=== PATIENT | female | born 1980 | race Caucasian/White ===

== ENCOUNTER 2016-06-20 12:48 | Inpatient (IN) | payer OTHER ==
--- NOTE | ~2016-06-20 | CN ---
Consultation Report [facility] [address] [place]. [address] NAME: TOM GUERRIER : 78 STATUS : ADM IN PAT#: [id number] AGE: 36 ADM/REG DATE : 06/20/16 MR#: [id number] REPORT SERV DATE: 06/21/16 DICTATED BY: DATE: REPORT STATUS : Draft TRANSCRIBED BY: MODL DATE: 06/21/16 NEUROLOGY CONSULTATION. DATE OF CONSULTATION: 06/21/2016 REASON FOR CONSULTATION: Seizure and myoclonus activities. HISTORY OF PRESENT ILLNESS: This is a 36-year-old female with past medical history of bipolar disease previously well controlled, functional, working, obtaining a degree. The patient was noted to have some difficulties with bipolar medication. As a result, the patient's physician was trying to change the bipolar medication regimen. The patient's physician told her to stop the bipolar medication and it is unclear whether or not the patient also stopped all of her other home medications. As a result, the patient was found by family member to be shaking and seizing nonstop. As a result, the patient was taken to hospital initially at [facility] where the patient was admitted on 06/19/2016. Neurologist, Dr. Carlson was evaluating the patient, EEG was obtained. The patient was started on Depacon 750 mg IV b.i.d. secondary to the patient on the ground for prolonged period of time. The patient developed rhabdomyolysis and the patient was transferred to [facility] for CRRT. The patient was seen in intensive care unit at the [facility]. Upon arrival, the patient was noted to be very agitated, had four-point restraints, required Ativan. The patient was placed on propofol and subsequently intubated overnight. The patient is currently off sedation but remains intubated, and since off sedation, the patient was noted to have a mostly reactive myoclonus type of activity. The patient was noted to have generalized shaking episodes and jerking episode, predominantly on the left side, especially worse with stimulation prior to the hospitalization. No clear fever episode was otherwise noted. The patient was supposed to be on scheduled benzodiazepine, however, admission UDS was only noted to have cannabinoids. It is questionable whether or not the patient was taking benzodiazepine at home prior to the hospitalization. PAST MEDICAL HISTORY: Otherwise significant for bipolar disease and ADD. HOME MEDICATION: Unclear at this time. ALLERGIES: THE PATIENT REPORTS NO KNOWN DRUG ALLERGIES. SOCIAL HISTORY: The patient lives alone. Has positive cannabinoids on UDS, but otherwise does not use any tobacco products. No history of alcohol usage per medical record. FAMILY HISTORY: Significant for depression. REVIEW OF SYSTEMS: Unfortunately unable to be obtained secondary to the patient's current mental status. Consultation Report [address] [place]. [address] NAME: TOM GUERRIER : 78 STATUS : ADM IN PAT#: [id number] AGE: 36 ADM/REG DATE : 06/20/16 MR#: [id number] REPORT SERV DATE: 06/21/16 DICTATED BY: DATE: REPORT STATUS : Draft TRANSCRIBED BY: MODSaundra DATE: 06/21/16 PHYSICAL EXAMINATION: VITAL SIGNS: The patient previously, since the hospitalization, was noted to be afebrile. Overnight, the patient's vital sign was noted to be T-max of 99.2, heart rate of 70 to 101, respiration of 13 to 21, and blood pressure of 102 to 152 over 60 to 90. GENERAL: The patient is well developed, well nourished, in no acute distress. CARDIOVASCULAR: Tachycardic. No carotid bruits were otherwise auscultated. PULMONARY: Clear to auscultation bilaterally. NEUROLOGICAL: Generally, the patient is intubated, nonverbal, not following commands. The patient will open eye with stimulation as well as name calling. Cranial nerves 2 through 12, pupils equal, round, and reactive to light. Horizontal eye movement was noted on oculocephalic maneuver. No fujah-ye-oyvpal response was noted. Corneal reflex was noted to be intact. The patient noted to have minimal grimace to bilateral jaw. The patient does have a delayed gag reflex at the time of evaluation, now clear. The patient demonstrates some spontaneous movement of the bilateral upper extremity, almost like flexor posturing type of response with the patient noted to have myoclonus jerking, worse with stimulation. The patient in addition was noted to have myoclonus jerk with noxious stimulation in bilateral upper extremities. Bilateral lower extremities; the patient was noted to have sustained clonus in the left lower extremity, no clonus was noted in the right lower extremity. Otherwise, the patient was noted to have 2+ reflex in bilateral upper and right lower extremity. 4+ reflex in the left lower extremity. Upgoing toe in the left lower extremity. Downgoing toe in the right plantar reflex. Coordination and gait were unable to be evaluated secondary to patient's current mental status. LABORATORY STUDIES: Demonstrated white blood cell count of 13.8, hemoglobin of 11.0, hematocrit of 32.3, platelet count of 160. Chemistry panel; sodium 140, potassium 4.2, chloride 105, bicarb is 23, BUN of 16, creatinine of 2.38, glucose of 73, calcium of 8.9, magnesium of 2.1. CPK is 25,296, which was improved upon outpatient CPK. Blood gas demonstrated pH of 7.31, pCO2 of 45, pO2 of 75, bicarb of 22.0, O2 saturation of 94.2. At the time of evaluation, CT scan of the brain obtained on 06/18/2016, demonstrated no acute process. No other neuro imaging was available. IMPRESSION AND PLAN: 1. Encephalopathy. 2. Seizure. 3. Myoclonus, mostly reactive. The patient was noted to be in status epilepticus prior to hospitalization. Question of acute benzo withdrawal. We will obtain EEG study. We will increase Depakote to 1000 mg IV b.i.d. For now, we will also check serum ammonia level. We will have patient on Keppra 500 mg IV b.i.d. secondary to the patient's asymmetrical physical examination, especially with clonus, as well as hyperreflexia in the left lower extremity. The patient's condition was stabilized when the patient is off CRRT. We will evaluate the patient for possible MRI study. When the patient was extubated, we will also evaluate for psychiatric consultation to manage patient's psychiatric medication. RECOMMENDATION: Consultation Report [facility] [address] [place] [address] NAME: TOM GUERRIER : 78 STATUS : ADM IN [facility]#: [id number] AGE: 36 ADM/REG DATE : 06/20/16 MR#: [id number] REPORT SERV DATE: 06/21/16 DICTATED BY: DATE: REPORT STATUS : Draft TRANSCRIBED BY: MODL DATE: 06/21/16 1. Ammonia level. 2. Ammonia and CPK level with morning labs. 3. Increase Depakote to 1000 mg IV b.i.d. 4. Keppra 500 mg IV b.i.d. 5. EEG. 6. When the patient is off CRRT with stable clinical evaluation, we will evaluate patient for MRI of the brain without contrast. 7. When the patient is extubated and able to communicate, we will obtain Psychiatry consult for management of bipolar disease and psychiatric medication. CCH/MODL Robbin Mondragon MD / [id number] CC: Raji Carter MD
--- NOTE | ~2016-06-20 | DS ---
Discharge Summary [facility] [address] [place]. [address] NAME: TOM RIVAS : 78 STATUS : DIS IN PAT#: [id number] AGE: 36 ADM/REG DATE : 06/20/16 MR#: [id number] REPORT SERV DATE: 07/19/16 DICTATED BY: DATE: REPORT STATUS : Draft TRANSCRIBED BY: MODL DATE: 07/18/16 ADMISSION DATE: 06/20/2016 DISCHARGE DATE: 07/18/2016 DISCHARGE DIAGNOSES: 1. End-stage renal disease secondary to rhabdomyolysis. 2. Dysphonia. 3. Seizure disorder. 4. Status epilepticus. 5. Depression and anxiety. 6. Bipolar disorder. 7. Hypertension. 8. Anemia. 9. Hypoxia. CONSULTANTS: Nephrology consult, Dr. Audie Brewster and Rafy Bell. Neurology consult, Dr. Arturo Carlson. Pulmonary Critical Care, Dr. Johnson. ENT consult, Dr. Darrin Andrade. Psychiatry, Dr. Sree Cardoza. HOSPITAL COURSE: Please see initial H and P by Dr. Lucian Grossman, H and P by Dr. Martha Sanchez, interim discharge summary by Dr. Eri Wetzel on 06/30/2016, Dr. Nathan Ferrell on 07/02/2016, Dr. Zack Martin on 07/15/2016, and I have assumed the patient's care on 07/16/2016 through 07/18/2016. HISTORY OF PRESENT ILLNESS: Ms Rivas is a 36-year-old female with underlying bipolar disease, ADHD, depression who was in the process of having psychiatric medications adjusted by her outpatient psychiatrist and was found down on the floor at home. The patient had apparently had a seizure at that time. It was thought that the patient had vomited and probably aspirated. The patient had injury typical of a seizure as well as encephalopathy and delirium and rhabdomyolysis. Kidney function continued to deteriorate until the patient is requiring dialysis. Her initial CK went up to 59,000, but last was down to 73. The patient has had a PermCath placed on her right side, and the patient was given CRRT until dismissed out on the floor where she is on dialysis every other day. Today, 07/18/2016, the patient had an additional PermCath placed on her left chest and the right chest PermCath was still left in place despite the exposed cuff. This was discussed with Dr. Bell and it will be addressed at dialysis. During the patient's time with me, the patient has been alternately tearful at realization that she will have to be on dialysis but is relieved that she probably will not have to have it on a long-term basis due to her discussions with Dr. Bell. The patient will be having outpatient dialysis starting tomorrow. At this time, the patient has two PermCaths that are covered with sterile dressings. An O2 stat evaluation was done after determining patient was desaturating while she was having conversation. On room air, her O2 saturation went down to 81%, so home O2 has been ordered. The patient is ambulatory with a rolling walker and is starting to void in small amounts. The patient and mother have been educated as to a renal diet with a 1500 mL fluid restriction and they verbalized understanding. The patient's BNP continues to be elevated at 4194. Discharge Summary [address] [address] NAME: TOM RIVAS : 78 STATUS : DIS IN PAT#: [id number] AGE: 36 ADM/REG DATE : 06/20/16 MR#: [id number] REPORT SERV DATE: 07/19/16 DICTATED BY: DATE: REPORT STATUS : Draft TRANSCRIBED BY: DUNG DATE: 07/18/16 LABORATORY DATA: Her current labs are sodium 134, potassium 4.2, chloride 98, bicarb 22.6, BUN is 20, creatinine is 4.20, GFR is 15, glucose 85, calcium 8.2, and magnesium 1.6 of which 1 g of IV magnesium has been given in addition due to the lab. Phosphorus 3.3. WBC 6.8, hemoglobin 9.7, hematocrit 28.4, platelets 81. The patient has received 3 units of packed cells during her stay. Medications have been discussed with the patient regarding her home medications that she was taking for her psychiatric needs and it was recommended the [facility] needs since the patient will be going home on Depakote which is also given for bipolar disorder as well as seizure disorder. The patient's home Lamictal has been cut down to 25 mg twice daily and it was reviewed with mother how to divide the tablets that she has at home. The patient was instructed not to use any NSAIDs or Pepcid while she was at home. The patient has been evaluated by Speech Therapy with a modified barium swallow, is allowed to have a chopped meats with gravy. The patient also continues to experience dysphonia due to prolonged intubation, but is tolerating p.o. intake well. Last transfusion of 2 units of PRBCs was done on 07/15/2016. PHYSICAL EXAMINATION: VITAL SIGNS: Blood pressure 133/85, temp 97.3, heart rate 88, respirations 18, O2 saturation 97% on 2 L nasal cannula. HEENT: Head is normocephalic. Pupils equal, round, and reactive to light. Sclerae are clear and nonicteric. The patient has good dentition. NECK: No palpable lymphadenopathy or thyromegaly. Neck is supple. Neck veins are flat. CARDIAC: S1 and S2 with no obvious murmurs, rubs, or gallops. LUNGS: Clear with normal respiratory effort. GI: Abdomen is soft, and nontender with active bowel sounds in all four quadrants. Normal bowel habitus. No palpable organomegaly. EXTREMITIES: No significant edema, clubbing, or cyanosis. Pulses are present equal bilaterally. MUSCULOSKELETAL: The patient moves all extremities x4. Ambulates with rolling walker. SKIN: Skin is warm and dry with normal color and turgor. Is also intact. NEURO/PSYCH: The patient is alert and oriented x3. Pleasant and cooperative. The patient has occasional bursts of tearfulness realizing seriousness of medical condition. The patient is eating well and will be discharged to home on a renal diet with 1500 mL fluid restriction. DISCHARGE MEDICATIONS: Amlodipine 10 mg p.o. daily, Depakote 1000 mg p.o. every 12 hours, Lexapro 10 mg daily, labetalol 300 mg twice daily, Lamictal 25 mg twice daily, melatonin 3 mg daily, saline spray four times a day as needed in each nostril, clonazepam 2 mg at bedtime, loratadine as needed for allergies 10 mg. The patient has also been instructed to use omeprazole or pantoprazole or Tums if she is having indigestion. The patient has also been instructed not to use any NSAID type products or Pepcid, famotidine. The patient is only to use Tylenol for pain. The patient is to follow up with PCP in one week and to follow up with [facility], within one week. Should the patient develop any more episodes of severe illness, Discharge Summary [facility] [address] [place] [address] NAME: TOM RIVAS : 78 STATUS : DIS IN PAT#: [id number] AGE: 36 ADM/REG DATE : 06/20/16 MR#: [id number] REPORT SERV DATE: 07/19/16 DICTATED BY: DATE: REPORT STATUS : Draft TRANSCRIBED BY: MODL DATE: 07/18/16 she is to call her PCP or present to the ER. Approximately 60 minutes has been spent coordinating discharge care of this patient including [id number] encounter and summarization of the discharge. EDITH/DUNG Nini Ramos NP / [id number] CC: Yves Don MD
--- NOTE | ~2016-06-20 | IDS ---
Interim Discharge Summary [facility] [address] [place]. [address] NAME: TOM GUERRIER : 78 STATUS : ADM IN PAT#: [id number] AGE: 36 ADM/REG DATE : 06/20/16 MR#: [id number] REPORT SERV DATE: 07/15/16 DICTATED BY: MENDEL HUDSON DATE: 07/15/16 REPORT STATUS : Draft TRANSCRIBED BY: MODL DATE: 07/15/16 ADMISSION DATE: 06/20/2016 DISCHARGE DATE: Intermittent dates cover July 09, 2016 to July 15, 2016. Current consultants include Nephrology. CURRENT HOSPITAL DIAGNOSES: 1. End-stage renal disease due to rhabdomyolysis. 2. History of seizure, admitted after found down and status epilepticus. 3. Depression. 4. Anxiety. 5. Dysphonia with silent aspiration. 6. Anemia. HOSPITAL COURSE DURING THE PAST WEEK: 1. The patient has continued dialysis. Her hyponatremia and volume status improved depending on where she is at her dialysis. 2. In regard to her dysphonia with silent aspiration, she will have a modified barium swallow today to see if that has improved. ENT did order a CT of the neck which was unremarkable. They did notice a left vocal fold paralysis during flexible laryngoscopy. This can be followed up as an outpatient. 3. In regard to her anemia, she did receive 2 units of blood today. She is continued on current medications per Psychiatry who have since signed off. DISPOSITION: Still pending outpatient dialysis placement. MARIELLAK/DUNG Mendel Hudson MD / [id number] CC: Mendel Hudson MD
--- NOTE | ~2016-06-20 | OP ---
Record Of Operation [facility] [address] [place]. [address] NAME: TOM GUERRIER : 78 STATUS : ADM IN PAT#: [id number] AGE: 36 ADM/REG DATE : 06/20/16 MR#: [id number] REPORT SERV DATE: 06/20/16 DICTATED BY: MARTHA SANCHEZ DATE: 06/20/16 REPORT STATUS : Draft TRANSCRIBED BY: MODL DATE: 06/20/16 DATE OF PROCEDURE: 06/20/2016 PROCEDURE: Vas-Cath placement for hemodialysis. INDICATION FOR PROCEDURE: Rhabdomyolysis. PROCEDURE NOTE: The patient's left groin was prepped and draped in sterile fashion, using ultrasound guidance, we were able to locate the left femoral vein and inserted the guidewire. We were able to use the ultrasound to ensure that this was in the femoral vein prior to the dilation. We were able to insert the Vas-Cath and had return of venous blood. This was secured and capped with heparin. This was draped in standard fashion. OUTCOME: Successful left groin vascular access was conducted for hemodialysis. HFQ/DUNG Martha Sanchez MD / [id number] CC: Raji Carter MD UNKNOWN
--- NOTE | ~2016-06-20 | CN ---
Consultation Report [facility] [address] [place]. [address] NAME: TOM GUERRIER : 78 STATUS : ADM IN PAT#: [id number] AGE: 36 ADM/REG DATE : 06/20/16 MR#: [id number] REPORT SERV DATE: 07/01/16 DICTATED BY: SREE VILLALBA DATE: 07/01/16 REPORT STATUS : Draft TRANSCRIBED BY: MODL DATE: 07/01/16 PSYCHIATRIC CONSULTATION DATE OF CONSULTATION: 07/01/2016 I reviewed this patient's medical record. I discussed the patient's history with her mother. HISTORY OF PRESENT ILLNESS: She was admitted with encephalopathy, rhabdomyolysis, acute kidney injury, and questionable status epilepticus. PAST PSYCHIATRIC HISTORY: When she was in the 6th grade, she developed panic attacks when she had to change classrooms. Subsequently, she showed spontaneous improvement when she was in her mid teens, she overdosed in the context of relationship issues with a boyfriend. She saw a counselor at that time. Over the years, she has worked and she went to college. A few years ago, she got a bachelor's degree from [employer]. She was working at [employer] throughout this time. She continued to take college courses and she was expecting to finish her master's degree in international business in September of this year. She has had a problem with depression and rapid mood shifting for about a year. She has been seeing psychiatrist, Dr. Almendarez, during this time. He had prescribed a variety of psychotropic medications. MEDICATIONS: Her most current home medications list included Concerta 36 mg daily, Adderall XR 30 mg and Adderall IR 10 mg (questionable if she was really taking this medication as it probably was replaced by the Concerta), Wellbutrin XL 300 mg b.i.d., Lexapro 30 mg daily, Lamictal 100 mg b.i.d., and Klonopin 1 mg b.i.d. and 2 mg at bedtime. Information in her record suggested that she may have stopped all of her psychotropic medications for an unspecified period of time prior to this admission. Her mother thought that the patient's mood problems were attributable to an implanted control device. This was removed some time during the past year. SOCIAL HISTORY: She was always a good student, doing well in school. She was also doing well at her job in [employer], until she abruptly decided to quit last month. She got in her mid 20s and she about eight years later. FAMILY HISTORY: A sister and two paternal aunts with bipolar disorder. MENTAL STATUS: She opened her eyes when I greeted her. She made good eye contact. She remained nonverbal. She was calm. DIAGNOSES: 1. Delirium, of unclear etiology. Possible contributors include polypharmacy toxicity or withdrawal, seizures precipitated by Wellbutrin and possibly other psychotropics, serotonin syndrome. 2. Bipolar disorder not otherwise specified. Consultation Report [facility] [id number] [place]. [address] NAME: TOM GUERRIER : 78 STATUS : ADM IN PAT#: [id number] AGE: 36 ADM/REG DATE : 06/20/16 MR#: [id number] REPORT SERV DATE: 07/01/16 DICTATED BY: SREE VILLALBA DATE: 07/01/16 REPORT STATUS : Draft TRANSCRIBED BY: DUNG DATE: 07/01/16 RECOMMENDATIONS: 1. Reduce Lexapro to 10 mg daily. 2. Continue Seroquel. The dose can be based on the level of agitation and her response to the medications. 3. Restart Lamictal at a dose of 25 mg daily. 4. I will follow. KAREEM/DUNG Sree Villalba M.D. / [id number] CC: Raji Carter MD
--- NOTE | ~2016-06-20 | IDS ---
Interim Discharge Summary [facility] [address] [place]. [address] NAME: TOM RIVAS : 78 STATUS : ADM IN PAT#: [id number] AGE: 36 ADM/REG DATE : 06/20/16 MR#: [id number] REPORT SERV DATE: 06/30/16 DICTATED BY: ARGELIA LANE DATE: 06/30/16 REPORT STATUS : Draft TRANSCRIBED BY: MODSaundra DATE: 06/30/16 ADMISSION DATE: 06/20/2016 DISCHARGE DATE: Date of admission: 06/20/2016 (transferred after presenting to [facility] ER on 06/19/2016). HISTORY OF PRESENT ILLNESS: Ms. Rivas is a 36-year-old female with underlying bipolar disease, ADHD and depression who had evidently been in the process of having her psychiatric medications adjusted by her outpatient psychiatrist, Dr. Almendarez and was found down in her home, evidently she had a seizure at that time with injuries consistent with that history. She had vomited and evidently aspirated. She was moved to [facility] Emergency Department, where she was quite agitated and actually required four-point leather restraints in the emergency department. She was ultimately intubated in [facility] ER for respiratory failure and behavioral health concerns/safety of staff. She was found to have fairly profound rhabdomyolysis with a CPK level of around 40,000 and marked acute kidney injury. She was seen by Nephrology and ultimately transferred to our facility for CHEMISTS. Since her transfer here on the , she has remained on mechanical ventilation with minimal urine output. She has been followed by Nephrology and has been transitioned from CHEMISTS to hemodialysis, Friday, Friday, Friday with intermittent diuretic challenges. She is still making minimal urine. She has had a daily spontaneous breathing trial and has consistently failed for rapid shallow breathing, weakness and inability to follow commands. Over the last couple of days, her mental status has improved with administration of Seroquel in addition to her existing Lexapro, which was continued from the outpatient setting as well as Precedex and propofol infusions and intermittent fentanyl for pain control. We have removed quite a bit of volume using dialysis over the last couple of days and are moving in the direction of extubation. ACTIVE PROBLEM LIST: Includes: 1. Acute hypoxemic and hypercapnic respiratory failure, status post intubation at [facility] 2A. This was on a later day 12. Volume removal is on going, and her chest x-ray has cleared dramatically. She also had the aspiration event the day she was found down, and that has improved radiographically. She is on minimal FiO2 at this point. We will try another spontaneous breathing trial this afternoon. She was a bit drowsy and still on a touch of propofol this morning when I rounded. If she fails, we will plan to repeat a spontaneous breathing trial tomorrow morning. Of note, I have introduced a concept of tracheostomy for longer-term mechanical ventilation with her mother who makes her medical decisions, and she is agreeable to proceeding with trach if necessary. 2. Acute kidney injury requiring dialysis. She was started on CHEMISTS on 06/20/2016, and was transitioned to HD mid-week. She is making minimal urine, and her Downing has been removed by Dr. Brunson. She has had a Perma-Cath placed (06/25/2016) in the Interventional Radiology, and the plan is Friday, Friday, Friday dialysis sessions if there is no evidence of improvement. 3. Rhabdomyolysis. Much improved with dialysis. 4. Toxic metabolic encephalopathy. Her mental status is beginning to improve, and her combativeness has improved with upper titration of her twice daily Seroquel dosing. She is already on Lexapro, which was continued during her hospitalization. Precedex Interim Discharge Summary [address] [address] NAME: TOM RIVAS : 78 STATUS : ADM IN [facility]#: [id number] AGE: 36 ADM/REG DATE : 06/20/16 MR#: [id number] REPORT SERV DATE: 06/30/16 DICTATED BY: ARGELIA LANE DATE: 06/30/16 REPORT STATUS : Draft TRANSCRIBED BY: MODSaundra DATE: 06/30/16 has been helpful as well as propofol. She is awake and interactive on max doses of both of those infusions. 5. Seizure disorder. She has been seen by Dr. Mondragon from Neurology, as well as well as Dr. Galo sandy this week. She is currently on valproic acid and Keppra with no further seizure activity. 6. Prophylaxis. She is on subcutaneous heparin and Protonix IV daily for stress ulcer prophylaxis while being mechanically ventilated. Code status is full. Her mother is her primary medical decision maker and has been updated many times throughout the week by myself as well as the nurses. She has fairly a limited understanding of the reality of what has been going on and has poor retention of information, although she is quite pleasant and agreeable. We will continue to educate her and reinforce the concepts related to the patient's care. I did complete FMLA forms for her on 06/29/2016. Please call with questions. AIME/DUNG Argelia Lane MD / [id number] CC: Raji Carter MD
--- NOTE | ~2016-06-20 | HP ---
History And Physical [address] [place]. [address] NAME: TOM RIVAS : 78 STATUS : ADM IN [facility]#: [id number] AGE: 36 ADM/REG DATE : 06/20/16 MR#: [id number] REPORT SERV DATE: 06/20/16 DICTATED BY: RUPERTO SANCHEZ DATE: 06/20/16 REPORT STATUS : Draft TRANSCRIBED BY: MODL DATE: 06/20/16 DATE OF ADMISSION: 06/20/2016 REASON FOR ADMISSION: Rhabdomyolysis, acute hypoxic respiratory failure. CHIEF COMPLAINT: Unable to obtain due to the patient's current status on mechanical ventilation. HISTORY OF PRESENT ILLNESS: Ms Rivas is a 36-year-old female with a past medical history of bipolar disease who apparently has been off her psychiatric medications and was found down at home. She apparently had a seizure at that time, clearly injury noted of a seizure. She also has encephalopathy and delirium. Of further concern, the patient had rhabdomyolysis. The other hospital attempted to treat this with IV fluids. However, CK slowly trended downwards, however, kidney function continued to deteriorate requiring the patient to be on hemodialysis. The patient was brought to the intensive care unit and probably had a vascular access inserted for dialysis. Parents and sisters were at the bedside for further history. PAST MEDICAL HISTORY: Bipolar disease, ADD. HOME MEDICATION: Please see history and physical dated 06/19/2016 at the outside hospital for further detail. ALLERGIES: NO KNOWN DRUG ALLERGIES. SOCIAL HISTORY: The patient currently lives alone. She had positive marijuana drug screen. She does not use any tobacco products. FAMILY HISTORY: Other family members with depression. PHYSICAL EXAMINATION: VITAL SIGNS: Afebrile, heart rate 70s, respiratory rate currently 16, blood pressure 109/70, oxygen saturation 97%. GENERAL: The patient is currently sedated on mechanical ventilation. HEENT: Neck is supple, no JVD. PULMONARY: Lungs are clear to auscultation bilaterally. ABDOMEN: Soft, nontender, nondistended. CARDIAC: Regular rate, no murmurs. SKIN: The patient has multiple areas of bruising and injury from her seizure. LABORATORY EXAMINATION: Kidney function has essentially deteriorated in which the patient is having a quick rise of BUN and creatinine. CK started out at 21,000, went up to 59,000 and is now down to 43. Positive marijuana, but otherwise other findings are not significantly abnormal. ASSESSMENT/PLAN: Ms Rivas is a 36-year-old female with a past medical history noted above, History And Physical [address] [address] NAME: TOM RIVAS : 78 STATUS : ADM IN PAT#: [id number] AGE: 36 ADM/REG DATE : 06/20/16 MR#: [id number] REPORT SERV DATE: 06/20/16 DICTATED BY: RUPERTO SANCHEZ DATE: 06/20/16 REPORT STATUS : Draft TRANSCRIBED BY: MODL DATE: 06/20/16 who presents with respiratory failure, seizure, encephalopathy, kidney failure, with rhabdomyolysis. 1. Acute hypercapnic respiratory failure: Currently, the patient is intubated for airway protection, continue mechanical ventilation. 2. Rhabdomyolysis: The patient had a dialysis catheter placed, we will start CRRT, Nephrology is on board. 3. Acute kidney injury: Currently, Nephrology is on board. 4. Psychiatric medications: At this moment in time, we will hold off on medications as the patient is currently on propofol, however, this will be needed to be addressed. 5. Neurologic: We will have Neurology see the patient for further inquiry. 6. Prophylaxis: We will provide GI and subcu heparin. 7. Code status: The patient is currently full code. HFQ/MODL Ruperto Sanchez MD / [id number] CC: Raji Carter MD
--- NOTE | ~2016-06-20 | EEG ---
Electroencephalogram [facility] [address] [place]. [address] NAME: TOM GUERRIER : 78 STATUS : ADM IN PAT#: [id number] AGE: 36 ADM/REG DATE : 06/20/16 MR#: [id number] REPORT SERV DATE: 06/21/16 DICTATED BY: DATE: REPORT STATUS : Draft TRANSCRIBED BY: MODL DATE: 06/21/16 NEUROLOGY EEG REPORT CLINICAL INDICATION: Myoclonus jerking, encephalopathy. DESCRIPTION: This EEG was performed with 10/20 electrode placement system. During the EEG study, symmetric background activity was noted with generalized slowing, predominant occipital rhythm of roughly 5 to 6 hertz. Photic stimulation was performed, but no driving response was otherwise observed. During the EEG study, one episode of shaking episode with muscle artifact was seen; however, no underlying background activity changes or electrographic seizure was noted. The patient achieved drowsy state during the EEG study. Propofol drip was otherwise turned off immediately prior to the initiation of the EEG study. As stated before, generalized slowing was seen during the EEG evaluation, but no seizure activity was otherwise noted. No electrographic seizure was captured. INTERPRETATION: This EEG study obtained mostly during drowsy state, may be considered abnormal secondary to presence of generalized slowing, mostly in the theta range. Otherwise, no electrographic seizure was seen. Clinical correlation is recommended. [facility]/MODL Robbin Mondragon MD / [id number] CC: Raji Carter MD
--- NOTE | ~2016-06-20 | IDS ---
Interim Discharge Summary [facility] [address] [place]. [address] NAME: TOM GUERRIER : 78 STATUS : ADM IN [facility]#: [id number] AGE: 36 ADM/REG DATE : 06/20/16 MR#: [id number] REPORT SERV DATE: 07/09/16 DICTATED BY: DATE: REPORT STATUS : Draft TRANSCRIBED BY: MODL DATE: 07/08/16 ADMISSION DATE: 06/20/2016 DISCHARGE DATE: Interim summary dates of service 07/03/2016 to 07/08/2016. The patient is admitted to the [facility]. CONSULTANTS: Included Dr. Bell of Nephrology, Dr. Sree Cardoza of Psychiatry, Dr. Eri Mondragon of Neurology, now signed off. The case was also discussed with the outpatient psychiatrist, Dr. Almendarez. Ears, Nose, and Throat consultation was requested of Dr. Rashid this evening. CURRENT DIAGNOSES: 1. Admitted found down, with status epilepticus. 2. Rhabdomyolysis. 3. Acute kidney injury, presently hemodialysis dependent. 4. Depression. 5. Anxiety. 6. ADD. 7. Dysphagia, past modified barium swallow evaluation on 07/08/2016. 8. Leukocytosis and elevated procalcitonin of unclear significance. 9. Coag negative staph in blood cultures at admission, 1/2 bottles felt to be contaminant. 10.Stable anemia. 11.Toxic/medication-induced encephalopathy, resolved. 12.Hypertension, uncontrolled, with additional labetalol titration underway. 13.Possible perimenopausal state. 14.Hypoxemic respiratory failure, intubated between 06/20/2016 and 06/30/2016. 15.Ongoing dysphonia, suggestive of vocal cord dysfunction. For ENT evaluation. IMAGIN. For full details, please also reference interim discharge summary by Dr. Nathan Trejo on 07/02/2016. Imaging has included EEG on 06/21/2016, showing diffuse slowing without seizure activity. Brain CT without contrast at admission, no acute intracranial abnormality. Abdominal ultrasound on 06/24/2016, showing sludge-filled gallbladder with no current sonographic evidence of cholecystitis. Increased renal cortical echotexture consistent with medical renal disease. Small amount of fluid in the perinephric fat most likely third spacing. 2. MRI brain without contrast on 06/25/2016 shows mastoiditis and sinusitis. No CVA. No evidence of cerebritis or encephalitis. 3. Echocardiogram on 07/07/2016 with normal ejection fraction. 4. Multiple swallow studies between 07/05/2016 and 07/08/2016 demonstrating aspiration. 5. V/Q lung scan on 07/08/2016 indeterminate probability for PE, no large filling defects. BRIEF HISTORY: For full details, please see the previously dictated history of present illness dictated by Dr. Kamala Grossman on 06/19/2016. The patient is a 36-year-old white Interim Discharge Summary [address] [place]. [address] NAME: TOM GUERRIER : 79 STATUS : ADM IN [facility]#: [id number] AGE: 36 ADM/REG DATE : 06/20/16 MR#: [id number] REPORT SERV DATE: 07/09/16 DICTATED BY: DATE: REPORT STATUS : Draft TRANSCRIBED BY: MODL DATE: 07/08/16 female, who could not be reached by her mother for few hours, so, she went to her home to find her, found her on the floor in the bathroom with multiple bruises and constant jerking movements. She was unresponsive. She was confused and combative. Her CPK was found to be 20,944. [facility] She had a lumbar puncture, which was felt to be negative for infection. Her creatinine was mildly elevated, in [facility], began to treat with IV fluids and bicarbonate. Her CPK trended downwards, but renal function continued to deteriorate, necessitating the initiation of hemodialysis. The patient was transferred downtown with evidence of acute hypercapnic respiratory failure necessitating intubation and mechanical ventilation as well as anuric renal failure requiring initiation of CRRT. HOSPITAL COURSE: For full details, please also refer to interim discharge summaries by Dr. Mojgan Wetzel on 06/30/[address] Nathan Ferrell on 07/02/2016. The patient was transferred out to the floor on 07/02/2016 and was seeing by me on 07/03/2016 for the initial encounter. That morning, patient was demonstrating confusion, attempted to get out of bed but traumatically dislodged her Downing catheter. It was not replaced after discussion with Nephrology. She remained largely aneuric this week, although her urine output has increased over the weekend. Nephrology continues to follow and is determining the dialysis schedule. The patient received dialysis this morning for some hypoxemia noted over night. Thus far, her renal function does not show spontaneous recovery, although she is producing more urine, and Nephrology is encouraged that she will not be permanently dialysis-dependent after this acute kidney injury. The patient's confusion, toxic metabolic encephalopathy, improved during the course of this week, particularly when Seroquel was tapered off. The patient's mother questions her underlying psychiatric diagnoses and whether she does in fact have bipolar disorder. Psychiatry has been following here, and I discussed with the patient's outpatient psychiatrist, Dr. Almendarez. The patient has formal diagnoses of depression, anxiety, and ADD. Her current medication regimen is similar to what it was outpatient, although there is question of whether the patient was actually taking those medications or whether abrupt medication withdrawal may have factored into her presentation. Her medication regimen is stable at present, and antipsychotic medications are being avoided at mother's request. Currently, the patient is alert and oriented in three dimensions, cooperative, pleasant, and not demonstrating any active mood disorder. Blood pressure control has been an issue this week. The patient was placed on Norvasc, but blood pressure remained elevated. She had concomitant tachycardia so, was placed on metoprolol. This was increased, but blood pressure typically remained in the systolic 180 to 200 range. Metoprolol was changed to labetalol for improved blood pressure control, and this is been up titrated in the past few days. Current dose of labetalol is being increased to 300 mg p.o. twice a day. The patient also has several other p.r.n. agents for blood pressure control. Another active issue this week was dysphagia. The patient finally has passed a modified barium swallow study today. Her NG tube and tube feeds have been discontinued, and she has been started on a mechanical soft diet with honey-thick liquids. She has some residual Interim Discharge Summary [address] [place]. [address] NAME: TOM GUERRIER : 78 STATUS : ADM IN PAT#: [id number] AGE: 36 ADM/REG DATE : 06/20/16 MR#: [id number] REPORT SERV DATE: 07/09/16 DICTATED BY: DATE: REPORT STATUS : Draft TRANSCRIBED BY: MODSaundra DATE: 07/08/16 dysphonia, particularly with whispering, indicative of possible vocal cord dysfunction. An Ear, Nose, and Throat consultation is requested for tomorrow. The patient has some leukocytosis and has throughout this admission, but multiple workups for infectious causes have been negative. She was on Zosyn for a portion of the hospitalization, and this was discontinued when she transferred out of the intensive care unit. Her white blood cell count has gone up since then, but her procalcitonin has trended downwards and she is not manifesting any signs of fever. Repeat values are pending for the morning. Regarding tachycardia, it is sinus in nature, somewhat responsive to beta blockade. The cause of tachycardia is unclear as she has tended to be more volume overloaded and volume deplete with concomitant renal failure, and does not appear particularly anxious lately, and does not show any signs of sepsis. She was sent for a V/Q scan, as Nephrology wished to avoid any nephrotoxins contrast dye. This was read as indeterminate probability of pulmonary embolism, but no large perfusion defects to suggest pulmonary embolism. There has not felt to be a current indication for heparin drip, and she has been on DVT prophylaxis throughout the hospitalization. The patient's mother noted that she has occasional hot flashes and was concerned for possible early ovarian failure. She requested the LH, FSH, and other labs for premature ovarian failure be obtained, these have been. One is a send out. When results are available, the patient's mother would like to send them to Dr. Porras, for further decision making regarding HRT. MAXINE/DUNG Froy House M.D. / [id number] CC: Paul Cooley M.D.
--- NOTE | ~2016-06-20 | CN ---
Consultation Report [address] [facility] [place]. [address] NAME: TOM GUERRIER : 78 STATUS : ADM IN [facility]#: [id number] AGE: 36 ADM/REG DATE : 06/20/16 MR#: [id number] REPORT SERV DATE: 07/09/16 DICTATED BY: BETHANY LOGAN DATE: 07/09/16 REPORT STATUS : Draft TRANSCRIBED BY: MODL DATE: 07/09/16 CONSULTATION DATE OF CONSULTATION: CHIEF COMPLAINT: Hoarseness, dysphagia. HISTORY OF PRESENT ILLNESS: 36-year-old female with underlying bipolar disease, ADHD, and depression, who was recently admitted to [facility] for acute hypoxemic and hypercapnic respiratory failure, requiring intubation as well as acute kidney injury, requiring dialysis, rhabdomyolysis, toxic metabolic encephalopathy, seizure disorder. She was extubated on 06/30/2016 and had hoarseness and dysphagia following this. She initially failed her first modified barium swallow study on 07/08/2016 (yesterday). She had a repeat modified barium swallow showing aspiration precautions and a limited diet. Recommendation was for ENT consultation due to hoarseness. PAST MEDICAL HISTORY: As mentioned in the history of present illness. PAST SURGICAL HISTORY: As mentioned in the history of present illness. MEDICATIONS: See the MAR. ALLERGIES: NONE. SOCIAL HISTORY: She is at [employer], , and . REVIEW OF SYSTEMS: She is short of breath on 100% non-rebreather. She is deferring endoscopic examination. She is somewhat communicative, but appears tired and somewhat restless. PHYSICAL EXAMINATION: HEENT: Her ears are normal. Her nose has nasal cannula oxygen. Her oral cavity and oropharynx are not directly visualized. She is wearing a non-rebreather oxygen mask. Her neck has a right Vas-Cath in surgical site. No adenopathy. Full range of motion. NEURO: Cranial nerves 2 through 12 appear intact. Her voice evaluation reveals hoarseness and a weak cough. Flexible fiberoptic laryngoscopy was attempted, but she deferred based on her weakness and her desaturation off the 100% non-rebreather. IMPRESSION: Hoarseness and dysphagia, post extubation. PLAN: Plan is for flexible fiberoptic laryngoscopy when the patient is more fit physically to tolerate this. She is deferring now based on her current respiratory status. She may Consultation Report [id number] [facility] [place] [address] [address] NAME: TOM GUERRIER : 78 STATUS : ADM IN PAT#: [id number] AGE: 36 ADM/REG DATE : 06/20/16 MR#: [id number] REPORT SERV DATE: 07/09/16 DICTATED BY: BETHANY LOGAN DATE: 07/09/16 REPORT STATUS : Draft TRANSCRIBED BY: DUNG DATE: 07/09/16 have a vocal fold paralysis, which would need to be documented. Her voice and cough sound weak at this point, but her swallowing study does show improvement over the last several studies. She has limited dietary intake as recommended by Speech Therapy and would defer further oral intake to their recommendations. We will plan to follow up for flexible fiberoptic laryngoscopy. COLLEEN/DUNG Bethany Logan M.D. / [id number] CC: Froy House M.D.
--- NOTE | ~2016-06-20 | DS ---
Discharge Summary [id number] [place]. [address] NAME: TOM GUERRIER : 78 STATUS : DIS IN PAT#: [id number] AGE: 36 ADM/REG DATE : 06/20/16 MR#: [id number] REPORT SERV DATE: 07/19/16 DICTATED BY: DATE: REPORT STATUS : Draft TRANSCRIBED BY: MODL DATE: 07/18/16 ADMISSION DATE: 06/20/2016 DISCHARGE DATE: 07/18/2016 DISCHARGE DIAGNOSES: 1. End-stage renal disease, secondary to rhabdomyolysis. 2. Status epilepticus. 3. Dysphonia. 4. Seizure disorder. 5. Depression with anxiety. 6. Hypertension. 7. Anemia. 8. Hypoxia. CONSULTATIONS: 1. Nephrology, Dr. Bell. 2. Neurology, Dr. Carlson. 3. Pulmonary Critical Care, Dr. Johnson. 4. ENT, Dr. Darrin Andrade. 5. Psychiatry, Dr. Sree Cardoza. DICTATION ENDS HERE EDITH/DUNG Nini Ramos NP / [id number] CC: Yves Don MD
--- NOTE | ~2016-06-20 | OP ---
Record Of Operation [facility] [address] [place]. [address] NAME: TOM GUERRIER : 78 STATUS : ADM IN [facility]#: [id number] AGE: 36 ADM/REG DATE : 06/20/16 MR#: [id number] REPORT SERV DATE: 06/21/16 DICTATED BY: MILEY PIZANO DATE: 06/20/16 REPORT STATUS : Draft TRANSCRIBED BY: DUNG DATE: 06/20/16 DATE OF PROCEDURE: 06/20/2016 TIME: 2030 hours. PROCEDURE: Right venous subclavian line. INDICATION: For access. DESCRIPTION OF PROCEDURE: An informed consent obtained from patient's family regarding the risks and benefits of the procedure. A time-out done. Trendelenburg position. Ultrasound guide. ChloraPrep scrub. Xylocaine 1% used for anesthesia. The right subclavian vein was entered with seeker needle, catheter placed over the guidewire via modified Seldinger technique [address]. Sterile technique used throughout. The bedside saline injection and echo confirmed position. MARITZA/DUNG Miley Pizano M.D. / [id number]
--- NOTE | ~2016-06-20 | IDS ---
Interim Discharge Summary [facility] [address] [place]. [address] NAME: TOM GUERRIER : 78 STATUS : ADM IN PAT#: [id number] AGE: 36 ADM/REG DATE : 06/20/16 MR#: [id number] REPORT SERV DATE: 07/02/16 DICTATED BY: CAROL FERRELL IV DATE: 07/02/16 REPORT STATUS : Draft TRANSCRIBED BY: DUNG DATE: 07/02/16 ADMISSION DATE: 06/20/2016 DISCHARGE DATE: Date of transfer from [facility] is 06/20/2016, date of transfer to the floor is 07/02/2016. ADMITTING DIAGNOSES: 1. Respiratory failure with extubation on 06/30/2016. 2. Rhabdomyolysis. 3. Acute kidney injury, who remains on dialysis. 4. Metabolic encephalopathy, improved. 5. ADD bipolar disorder with adjustments of her medications. 6. Seizure abnormality with no current seizures on medications. 7. Hypoxemia, improving. 8. Hypertension with adjustments of her medications. 9. High procalcitonin level with only a contaminant positive blood culture, otherwise all cultures are negative. The patient has been treated with 10 days of Zosyn with plan to discontinue after doses today. CONSULTANTS: The patient has continued to have Neurology and Nephrology follow the patient who were consulted initially at [facility]. Speech Therapy, occupational Therapy, and Physical Therapy have all been consulted as well. Dr. Cardoza, Psychiatry. PROCEDURES: The patient had been on STRIP DEBURRER with transition to hemodialysis last week. The patient had an EEG on 06/21/2016 demonstrating diffuse slowing without seizure activity. The patient has central line placed on the 06/21/2016 as well. CURRENT MEDICATIONS: The patient is on DuoNeb with EzPAP q.4 hours while awake and q.4 hours as needed, folic acid 1 mg via OG daily, Habitrol patch 21 mg daily, heparin 5000 units q.8 hours, Keppra 500 mg q.12 hours IV, Depakote 1000 mg b.i.d., Lamictal 25 mg daily, Lexapro 10 mg daily, melatonin 3 mg at bedtime, Norvasc 10 mg daily, Lopressor 12.5 mg twice a day, Protonix 40 mg daily, Seroquel 25 mg in the morning and 50 mg at nighttime, and Zosyn to be completed today 3.375 g q.12 hours. HOSPITAL COURSE: Please see the interim discharge summary dictated by Dr. Wetzel on 06/30/2016 summarizing the care up to that time. The patient was successfully extubated on the 06/30/2016. We have been able to wean her FiO2. She has been intermittently agitated for which she was initially on Precedex. We consulted Dr. Cardoza, who suggested adjustments in her Lexapro and with the re-addition of Lamictal which was performed. The patient has been on Seroquel as well with improvement of her agitation. The patient underwent swallow evaluation on the 07/01/2016 and had a very weak voice for which it was not felt that a formal modified barium swallow study was indicated by speech therapy. Nasogastric tube was placed, and the patient is receiving feeds from that. She is receiving dialysis every Friday, , and Friday and continued to be followed by Nephrology. She has had persistent hypertension for which her Lopressor was added today with continued Norvasc and hydralazine p.r.n. She had cultures, which were negative except for 1 g coag- Interim Discharge Summary [id number] [place]. [address] NAME: TOM GUERRIER : 78 STATUS : ADM IN [facility]#: [id number] AGE: 36 ADM/REG DATE : 06/20/16 MR#: [id number] REPORT SERV DATE: 07/02/16 DICTATED BY: CAROL FERRELL IV DATE: 07/02/16 REPORT STATUS : Draft TRANSCRIBED BY: DUNG DATE: 07/02/16 negative staph from a blood culture and has been on Zosyn empirically with a high procalcitonin level, which has improved; however, antibiotics will be discontinued today with negative cultures in the duration of therapy. The patient had central line that was removed and cultured today. She has a midline on the left arm which will be continued. It was felt that she was stable for transfer to the floor. We will ask the Hospital Service to assume primary responsibilities. BOGDAN/DUNG Carol Ferrell IV, M.D. / [id number] CC: Raji Carter MD
[~2016-06-20 12:48] MED LIST: *UNABLE3; ADDERALL; ADZENYS; CHLORPHENIRAMINE; CONCERTA; EXCEDRIN MIGRAINE; GUAIFENESIN; HYDROCORTISONE; KLONOPIN; LAMICTAL; LEXAPRO; LORATADINE; MIDOL; PEPCID; PHENYLEPHRINE; TACROLIMUS; TYLENOL; VIMOVO; WELLBUTRIN XL
[2016-06-20 15:41] LABS: BE (BASE EXCESS) 7.3 MEQ/L (0 +/- 2.5); HCO3 (ACTUAL BICARBONATE) 30.4 MEQ/L (23-27); INSTRUMENT SERIAL # 35151; PCO2 (CO2 TENSION) 37 MMHG (35-45); PO2 (O2 TENSION) 103 MMHG (79-93); pH 7.53 (7.37-7.43)
[2016-06-20 15:42] LABS: ALLENS TEST Pos; CARBOXYHEMOGLOBIN 0.2 % (0-3); HEMOBLOGIN CONTENT 10.9 G/DL (12-16); METHEMOGLOBIN 0.9 % (0-3); MODE CMV; O2 CONTENT 14.9 VOL% (18-24); OPERATOR ID 35188; SAMPLE Arterial; TIDAL VOLUME 450 ML
[2016-06-20 20:20] LABS: BASOPHILS 0.2 %; BASOPHILS ABSOLUTE 0.02 10/3/uL (0.0-0.16); EOSINOPHILS 0.9 %; EOSINOPHILS ABSOLUTE 0.11 10/3/uL (0.0-0.53); HEMATOCRIT 29.9 % (36.0-48.0); HEMOGLOBIN 10.6 g/dL (12.0-16.0); IMMATURE GRANULOCYTES 0.3 %; IMMATURE GRANULOCYTES ABSOLUTE 0.04 10/3/uL (0.0-0.11); LYMPHOCYTES 4.2 %; LYMPHOCYTES ABSOLUTE 0.54 10/3/uL (0.67-4.30); MEAN CORPUSCULAR HEMOGLOB 32.1 pg (26.0-34.0); MEAN CORPUSCULAR VOLUME 90.6 fL (80-100); MONOCYTES 4.6 %; NEUTROPHILS 89.8 %; NEUTROPHILS ABSOLUTE 11.61 10/3/uL (2.02-8.40); PLATELET COUNT 164 10/3/uL (150-400); RBC DISTRIBUTION WIDTH 13.7 % (12.0-16.0); WHITE BLOOD CELLS 12.9 10/3/uL (4.5-10.5)
[2016-06-20 20:21] LABS: MANUAL DIFF NO %; MEAN CORPUS HGB CONC 35.5 g/dL (32.0-36.0)
[2016-06-20 20:34] LABS: BUN (BLOOD UREA NITROGEN) 35 MG/DL (6-23); CALCIUM, SERUM 6.9 MG/DL (8.5-10.4); CHLORIDE, SERUM 99 MMOL/L (96-112); CO2 (CARBON DIOXIDE) 26 MMOL/L (24-34); CREATININE 4.03 MG/DL (0.55-1.02); GFR AFRICAN AMERICAN 15 ML/MIN (>=60); GFR NON AFRICAN AMERICAN 13 ML/MIN (>=60); GLUCOSE, SERUM 81 MG/DL (60-99); PHOSPHORUS, SERUM 4.8 MG/DL (2.5-4.5); POTASSIUM, SERUM 3.5 MMOL/L (3.5-5.3); SODIUM, SERUM 139 MMOL/L (135-148)
[2016-06-20 23:26] LABS: BASOPHILS 0.1 %; BASOPHILS ABSOLUTE 0.01 10/3/uL (0.0-0.16); EOSINOPHILS 0.8 %; HEMATOCRIT 28.8 % (36.0-48.0); HEMOGLOBIN 10.2 g/dL (12.0-16.0); IMMATURE GRANULOCYTES 0.2 %; IMMATURE GRANULOCYTES ABSOLUTE 0.02 10/3/uL (0.0-0.11); LYMPHOCYTES 4.7 %; LYMPHOCYTES ABSOLUTE 0.57 10/3/uL (0.67-4.30); MEAN CORPUS HGB CONC 35.4 g/dL (32.0-36.0); MEAN CORPUSCULAR VOLUME 90.3 fL (80-100); MEAN PLATELET VOLUME 9.8 fL (9.2-13.0); MONOCYTES 4.5 %; MONOCYTES ABSOLUTE 0.54 10/3/uL (0.21-1.20); NEUTROPHILS 89.7 %; NEUTROPHILS ABSOLUTE 10.83 10/3/uL (2.02-8.40); PLATELET COUNT 149 10/3/uL (150-400); RBC DISTRIBUTION WIDTH 13.7 % (12.0-16.0); RED CELL COUNT 3.19 10/6/uL (4.0-5.6); WHITE BLOOD CELLS 12.1 10/3/uL (4.5-10.5)
[2016-06-20 23:28] LABS: MANUAL DIFF NO %
[2016-06-20 23:37] LABS: CALCIUM, SERUM 7.4 MG/DL (8.5-10.4); CHLORIDE, SERUM 103 MMOL/L (96-112); CO2 (CARBON DIOXIDE) 24 MMOL/L (24-34); GFR AFRICAN AMERICAN 21 ML/MIN (>=60); GFR NON AFRICAN AMERICAN 18 ML/MIN (>=60); GLUCOSE, SERUM 72 MG/DL (60-99); SODIUM, SERUM 141 MMOL/L (135-148)
[2016-06-20 23:38] LABS: BUN (BLOOD UREA NITROGEN) 25 MG/DL (6-23); CREATININE 3.17 MG/DL (0.55-1.02); POTASSIUM, SERUM 4.3 MMOL/L (3.5-5.3)
[2016-06-21 00:10] LABS: PHOSPHORUS, SERUM 3.5 MG/DL (2.5-4.5)
[2016-06-21 04:26] LABS: ALLENS TEST Pos; BE (BASE EXCESS) -4.3 MEQ/L (0 +/- 2.5); CARBOXYHEMOGLOBIN 0.3 % (0-3); HEMOBLOGIN CONTENT 11.3 G/DL (12-16); INSTRUMENT SERIAL # 35151; METHEMOGLOBIN 0.6 % (0-3); MODE CMV; O2 CONTENT 14.9 VOL% (18-24); OPERATOR ID 23712; PCO2 (CO2 TENSION) 45 MMHG (35-45); PO2 (O2 TENSION) 75 MMHG (79-93); SAMPLE Arterial; TIDAL VOLUME 450 ML; pH 7.31 (7.37-7.43)
[2016-06-21 05:35] LABS: BASOPHILS 0.1 %; BASOPHILS ABSOLUTE 0.02 10/3/uL (0.0-0.16); EOSINOPHILS 1.3 %; EOSINOPHILS ABSOLUTE 0.18 10/3/uL (0.0-0.53); IMMATURE GRANULOCYTES 0.4 %; IMMATURE GRANULOCYTES ABSOLUTE 0.05 10/3/uL (0.0-0.11); LYMPHOCYTES 3.6 %; MEAN CORPUS HGB CONC 34.1 g/dL (32.0-36.0); MEAN CORPUSCULAR HEMOGLOB 31.3 pg (26.0-34.0); MONOCYTES 4.5 %; MONOCYTES ABSOLUTE 0.62 10/3/uL (0.21-1.20); NEUTROPHILS 90.1 %; NEUTROPHILS ABSOLUTE 12.41 10/3/uL (2.02-8.40); PLATELET COUNT 160 10/3/uL (150-400); RBC DISTRIBUTION WIDTH 14.2 % (12.0-16.0); RED CELL COUNT 3.51 10/6/uL (4.0-5.6); WHITE BLOOD CELLS 13.8 10/3/uL (4.5-10.5)
[2016-06-21 05:38] LABS: HEMATOCRIT 32.3 % (36.0-48.0); MANUAL DIFF NO %
[2016-06-21 06:22] LABS: CHLORIDE, SERUM 105 MMOL/L (96-112); CO2 (CARBON DIOXIDE) 23 MMOL/L (24-34); GLUCOSE, SERUM 73 MG/DL (60-99); PHOSPHORUS, SERUM 3.2 MG/DL (2.5-4.5); POTASSIUM, SERUM 4.2 MMOL/L (3.5-5.3); SODIUM, SERUM 140 MMOL/L (135-148)
[2016-06-21 06:23] LABS: BUN (BLOOD UREA NITROGEN) 16 MG/DL (6-23); CALCIUM, SERUM 8.9 MG/DL (8.5-10.4); CREATININE 2.38 MG/DL (0.55-1.02); GFR AFRICAN AMERICAN 29 ML/MIN (>=60); GFR NON AFRICAN AMERICAN 25 ML/MIN (>=60)
[2016-06-21 06:49] LABS: CPK 25296 U/L (0-200)
[2016-06-21 12:26] LABS: BASOPHILS 0 %; EOSINOPHILS 0.3 %; EOSINOPHILS ABSOLUTE 0.04 10/3/uL (0.0-0.53); HEMATOCRIT 29.1 % (36.0-48.0); HEMOGLOBIN 10.3 g/dL (12.0-16.0); IMMATURE GRANULOCYTES 0.2 %; IMMATURE GRANULOCYTES ABSOLUTE 0.02 10/3/uL (0.0-0.11); LYMPHOCYTES 2.3 %; LYMPHOCYTES ABSOLUTE 0.31 10/3/uL (0.67-4.30); MEAN CORPUS HGB CONC 35.4 g/dL (32.0-36.0); MEAN CORPUSCULAR HEMOGLOB 31.9 pg (26.0-34.0); MEAN CORPUSCULAR VOLUME 90.1 fL (80-100); MEAN PLATELET VOLUME 9.9 fL (9.2-13.0); MONOCYTES ABSOLUTE 0.53 10/3/uL (0.21-1.20); NEUTROPHILS 93.2 %; NEUTROPHILS ABSOLUTE 12.37 10/3/uL (2.02-8.40); PLATELET COUNT 155 10/3/uL (150-400); RBC DISTRIBUTION WIDTH 14.2 % (12.0-16.0); RED CELL COUNT 3.23 10/6/uL (4.0-5.6); WHITE BLOOD CELLS 13.3 10/3/uL (4.5-10.5)
[2016-06-21 12:27] LABS: MANUAL DIFF NO %
[2016-06-21 12:39] LABS: CALCIUM, SERUM 9.1 MG/DL (8.5-10.4); CHLORIDE, SERUM 107 MMOL/L (96-112); CO2 (CARBON DIOXIDE) 22 MMOL/L (24-34); GFR AFRICAN AMERICAN 43 ML/MIN (>=60); GFR NON AFRICAN AMERICAN 37 ML/MIN (>=60); GLUCOSE, SERUM 77 MG/DL (60-99); POTASSIUM, SERUM 4.1 MMOL/L (3.5-5.3); SODIUM, SERUM 142 MMOL/L (135-148)
[2016-06-21 12:40] LABS: BUN (BLOOD UREA NITROGEN) 12 MG/DL (6-23); CREATININE 1.74 MG/DL (0.55-1.02)
[2016-06-21 17:34] LABS: BASOPHILS 0.1 %; BASOPHILS ABSOLUTE 0.01 10/3/uL (0.0-0.16); EOSINOPHILS 0.7 %; EOSINOPHILS ABSOLUTE 0.09 10/3/uL (0.0-0.53); HEMATOCRIT 29.8 % (36.0-48.0); HEMOGLOBIN 10.4 g/dL (12.0-16.0); IMMATURE GRANULOCYTES 0.2 %; IMMATURE GRANULOCYTES ABSOLUTE 0.03 10/3/uL (0.0-0.11); LYMPHOCYTES ABSOLUTE 0.49 10/3/uL (0.67-4.30); MEAN CORPUS HGB CONC 34.9 g/dL (32.0-36.0); MEAN CORPUSCULAR HEMOGLOB 31.5 pg (26.0-34.0); MEAN CORPUSCULAR VOLUME 90.3 fL (80-100); MEAN PLATELET VOLUME 10.3 fL (9.2-13.0); MONOCYTES 3.1 %; MONOCYTES ABSOLUTE 0.37 10/3/uL (0.21-1.20); NEUTROPHILS 91.9 %; NEUTROPHILS ABSOLUTE 11.12 10/3/uL (2.02-8.40); PLATELET COUNT 169 10/3/uL (150-400); RBC DISTRIBUTION WIDTH 14.2 % (12.0-16.0); WHITE BLOOD CELLS 12.1 10/3/uL (4.5-10.5)
[2016-06-21 17:39] LABS: MANUAL DIFF NO %
[2016-06-21 17:46] LABS: BUN (BLOOD UREA NITROGEN) 10 MG/DL (6-23); CALCIUM, SERUM 9.3 MG/DL (8.5-10.4); CHLORIDE, SERUM 106 MMOL/L (96-112); CO2 (CARBON DIOXIDE) 23 MMOL/L (24-34); GFR AFRICAN AMERICAN 47 ML/MIN (>=60); GFR NON AFRICAN AMERICAN 41 ML/MIN (>=60); GLUCOSE, SERUM 80 MG/DL (60-99); PHOSPHORUS, SERUM 2.1 MG/DL (2.5-4.5); SODIUM, SERUM 140 MMOL/L (135-148)
[2016-06-21 23:08] LABS: BASOPHILS 0 %; EOSINOPHILS 0.8 %; HEMATOCRIT 28.8 % (36.0-48.0); HEMOGLOBIN 10.1 g/dL (12.0-16.0); IMMATURE GRANULOCYTES 0.3 %; IMMATURE GRANULOCYTES ABSOLUTE 0.03 10/3/uL (0.0-0.11); LYMPHOCYTES 3.5 %; LYMPHOCYTES ABSOLUTE 0.42 10/3/uL (0.67-4.30); MEAN CORPUS HGB CONC 35.1 g/dL (32.0-36.0); MEAN CORPUSCULAR HEMOGLOB 31.9 pg (26.0-34.0); MEAN CORPUSCULAR VOLUME 90.9 fL (80-100); MEAN PLATELET VOLUME 10.1 fL (9.2-13.0); MONOCYTES 4.2 %; NEUTROPHILS 91.2 %; NEUTROPHILS ABSOLUTE 10.87 10/3/uL (2.02-8.40); PLATELET COUNT 159 10/3/uL (150-400); RBC DISTRIBUTION WIDTH 14.1 % (12.0-16.0); RED CELL COUNT 3.17 10/6/uL (4.0-5.6); WHITE BLOOD CELLS 11.9 10/3/uL (4.5-10.5)
[2016-06-21 23:09] LABS: MANUAL DIFF NO %
[2016-06-21 23:24] LABS: BUN (BLOOD UREA NITROGEN) 9 MG/DL (6-23); CALCIUM, SERUM 9.3 MG/DL (8.5-10.4); CHLORIDE, SERUM 106 MMOL/L (96-112); CO2 (CARBON DIOXIDE) 22 MMOL/L (24-34); CREATININE 1.43 MG/DL (0.55-1.02); GFR AFRICAN AMERICAN 54 ML/MIN (>=60); GFR NON AFRICAN AMERICAN 47 ML/MIN (>=60); GLUCOSE, SERUM 91 MG/DL (60-99); SODIUM, SERUM 141 MMOL/L (135-148)
[2016-06-22 03:39] LABS: ALLENS TEST Pos; BE (BASE EXCESS) -4.7 MEQ/L (0 +/- 2.5); CARBOXYHEMOGLOBIN 0.2 % (0-3); HCO3 (ACTUAL BICARBONATE) 21.6 MEQ/L (23-27); HEMOBLOGIN CONTENT 10.7 G/DL (12-16); INSTRUMENT SERIAL # 35151; METHEMOGLOBIN 0.7 % (0-3); MODE CMV; O2 CONTENT 14.9 VOL% (18-24); OPERATOR ID 31061; PCO2 (CO2 TENSION) 45 MMHG (35-45); PO2 (O2 TENSION) 135 MMHG (79-93); SAMPLE Arterial; TIDAL VOLUME 450 ML
[2016-06-22 04:28] LABS: CALCIUM IONIZED 5.69 MG/DL (3.80-4.80)
[2016-06-22 04:35] LABS: BASOPHILS 0.1 %; BASOPHILS ABSOLUTE 0.01 10/3/uL (0.0-0.16); EOSINOPHILS 1.3 %; EOSINOPHILS ABSOLUTE 0.15 10/3/uL (0.0-0.53); HEMATOCRIT 29.4 % (36.0-48.0); HEMOGLOBIN 10.2 g/dL (12.0-16.0); IMMATURE GRANULOCYTES 0.3 %; IMMATURE GRANULOCYTES ABSOLUTE 0.03 10/3/uL (0.0-0.11); LYMPHOCYTES ABSOLUTE 0.34 10/3/uL (0.67-4.30); MEAN CORPUS HGB CONC 34.7 g/dL (32.0-36.0); MEAN CORPUSCULAR HEMOGLOB 32.3 pg (26.0-34.0); MEAN PLATELET VOLUME 10.2 fL (9.2-13.0); MONOCYTES 4.9 %; MONOCYTES ABSOLUTE 0.55 10/3/uL (0.21-1.20); NEUTROPHILS 90.4 %; NEUTROPHILS ABSOLUTE 10.18 10/3/uL (2.02-8.40); PLATELET COUNT 154 10/3/uL (150-400); RBC DISTRIBUTION WIDTH 14.2 % (12.0-16.0); RED CELL COUNT 3.16 10/6/uL (4.0-5.6); WHITE BLOOD CELLS 11.3 10/3/uL (4.5-10.5)
[2016-06-22 04:36] LABS: MANUAL DIFF NO %
[2016-06-22 05:02] LABS: BUN (BLOOD UREA NITROGEN) 8 MG/DL (6-23); CHLORIDE, SERUM 107 MMOL/L (96-112); CO2 (CARBON DIOXIDE) 21 MMOL/L (24-34); CREATININE 1.38 MG/DL (0.55-1.02); GFR AFRICAN AMERICAN 56 ML/MIN (>=60); GFR NON AFRICAN AMERICAN 49 ML/MIN (>=60); GLUCOSE, SERUM 96 MG/DL (60-99); PHOSPHORUS, SERUM 2.4 MG/DL (2.5-4.5); POTASSIUM, SERUM 3.9 MMOL/L (3.5-5.3); SGOT(AST) 686 U/L (5-40); SGPT(ALT) 263 U/L (5-65); SODIUM, SERUM 142 MMOL/L (135-148); TOTAL PROTEIN 5.7 G/DL (6.0-8.5)
[2016-06-22 05:03] LABS: A/G RATIO 0.8 (0.7-1.9); ALBUMIN 2.5 G/DL (3.5-5.0); ALKALINE PHOSPHATASE 67 U/L (45-117); CPK 5240 U/L (0-200); GLOBULIN 3.2 G/DL (2.5-4.1)
[2016-06-22 10:55] LABS: BASOPHILS 0.1 %; BASOPHILS ABSOLUTE 0.01 10/3/uL (0.0-0.16); EOSINOPHILS 1.2 %; EOSINOPHILS ABSOLUTE 0.12 10/3/uL (0.0-0.53); HEMOGLOBIN 9.6 g/dL (12.0-16.0); IMMATURE GRANULOCYTES 0.3 %; IMMATURE GRANULOCYTES ABSOLUTE 0.03 10/3/uL (0.0-0.11); LYMPHOCYTES 5.4 %; LYMPHOCYTES ABSOLUTE 0.52 10/3/uL (0.67-4.30); MEAN CORPUS HGB CONC 35.6 g/dL (32.0-36.0); MEAN CORPUSCULAR HEMOGLOB 32.4 pg (26.0-34.0); MEAN CORPUSCULAR VOLUME 91.2 fL (80-100); MEAN PLATELET VOLUME 10.1 fL (9.2-13.0); MONOCYTES 5.8 %; MONOCYTES ABSOLUTE 0.56 10/3/uL (0.21-1.20); NEUTROPHILS 87.2 %; NEUTROPHILS ABSOLUTE 8.46 10/3/uL (2.02-8.40); PLATELET COUNT 153 10/3/uL (150-400); RBC DISTRIBUTION WIDTH 14.1 % (12.0-16.0); RED CELL COUNT 2.96 10/6/uL (4.0-5.6); WHITE BLOOD CELLS 9.7 10/3/uL (4.5-10.5)
[2016-06-22 10:57] LABS: MANUAL DIFF NO %
[2016-06-22 11:06] LABS: BUN (BLOOD UREA NITROGEN) 11 MG/DL (6-23); CALCIUM, SERUM 9.6 MG/DL (8.5-10.4); CHLORIDE, SERUM 107 MMOL/L (96-112); CO2 (CARBON DIOXIDE) 23 MMOL/L (24-34); GFR AFRICAN AMERICAN 44 ML/MIN (>=60); GFR NON AFRICAN AMERICAN 38 ML/MIN (>=60); GLUCOSE, SERUM 115 MG/DL (60-99); SODIUM, SERUM 139 MMOL/L (135-148)
[2016-06-22 11:11] LABS: POTASSIUM, SERUM 4.8 MMOL/L (3.5-5.3)
[2016-06-22 16:20] LABS: ALBUMIN 2.3 G/DL (3.5-5.0); ALKALINE PHOSPHATASE 62 U/L (45-117); PREALBUMIN 13.7 MG/DL (17.0-43.0); SGOT(AST) 549 U/L (5-40); SGPT(ALT) 256 U/L (5-65)
[2016-06-22 16:22] LABS: TOTAL BILIRUBIN 0.5 MG/DL (0-1.2)
[2016-06-22 17:23] LABS: A/G RATIO 0.7 (0.7-1.9); GLOBULIN 3.1 G/DL (2.5-4.1); TOTAL PROTEIN 5.4 G/DL (6.0-8.5)
[2016-06-22 17:30] LABS: MEAN CORPUS HGB CONC 34.5 g/dL (32.0-36.0); MEAN CORPUSCULAR HEMOGLOB 31.5 pg (26.0-34.0); MEAN CORPUSCULAR VOLUME 91.5 fL (80-100); MEAN PLATELET VOLUME 10.3 fL (9.2-13.0); PLATELET COUNT 112 10/3/uL (150-400); RBC DISTRIBUTION WIDTH 14.1 % (12.0-16.0); RED CELL COUNT 3.17 10/6/uL (4.0-5.6)
[2016-06-22 17:37] LABS: MANUAL DIFF YES %
[2016-06-22 17:53] LABS: BUN (BLOOD UREA NITROGEN) 13 MG/DL (6-23); CALCIUM, SERUM 9.4 MG/DL (8.5-10.4); CHLORIDE, SERUM 106 MMOL/L (96-112); CK-MB 11.7 NG/ML; CKMB INDEX (NOT ORD) 0.4; CO2 (CARBON DIOXIDE) 22 MMOL/L (24-34); CPK 2764 U/L (0-200); CREATININE 2.03 MG/DL (0.55-1.02); GFR AFRICAN AMERICAN 35 ML/MIN (>=60); GFR NON AFRICAN AMERICAN 31 ML/MIN (>=60); GLUCOSE, SERUM 135 MG/DL (60-99); PHOSPHORUS, SERUM 2.4 MG/DL (2.5-4.5); SODIUM, SERUM 141 MMOL/L (135-148)
[2016-06-22 18:04] LABS: WHITE BLOOD CELLS 2.7 10/3/uL (4.5-10.5)
[2016-06-22 18:29] LABS: BAND NEUTROPHILS 24 %; EOSINOPHILS 1 %; EOSINOPHILS ABSOLUTE (CALC) 0.03 10/3/uL (0.0-0.53); IMMATURE GRANS ABSOLUTE (CALC) 0.03 10/3/uL (0.0-0.11); LYMPHOCYTES 5 %; LYMPHOCYTES ABSOLUTE (CALC) 0.14 10/3/uL (0.67-4.30); METAMYELOCYTES 1 %; NEUTROPHILS ABSOLUTE (CALC) 2.51 10/3/uL (2.02-8.40); SEGMENTED NEUTROPHIL (0) 69 %; TOTAL NUCLEATED CELLS 100
[2016-06-22 18:30] LABS: PLATELET ESTIMATE SLT DEC (ADEQUATE); RBC MORPHOLOGY NORM (NORMAL); TOXIC GRANULATION 1+; VACUOLATED NEUTROPHILES 2+
[2016-06-23 00:51] LABS: ASCORBIC ACID (UR NOT ORDER) NEG (NEG); BILIRUBIN, URINE NEGATIVE (NEG); KETONE, URINE NEGATIVE (NEG); LEUKOCYTE ESTERASE(NOT OR NEG (NEG); WBC (NOT ORDERED) (RFLEX) 5 (0-5)
[2016-06-23 03:53] LABS: ALLENS TEST Pos; CARBOXYHEMOGLOBIN 0.3 % (0-3); HCO3 (ACTUAL BICARBONATE) 22.2 MEQ/L (23-27); HEMOBLOGIN CONTENT 9.4 G/DL (12-16); INSTRUMENT SERIAL # 35151; METHEMOGLOBIN 0.5 % (0-3); MODE CMV; O2 CONTENT 13.2 VOL% (18-24); OPERATOR ID 13861; PCO2 (CO2 TENSION) 46 MMHG (35-45); PO2 (O2 TENSION) 145 MMHG (79-93); SAMPLE Arterial; TIDAL VOLUME 450 ML; pH 7.31 (7.37-7.43)
[2016-06-23 04:52] LABS: CALCIUM IONIZED 5.15 MG/DL (3.80-4.80)
[2016-06-23 04:56] LABS: BASOPHILS 0 %; BASOPHILS ABSOLUTE 0.01 10/3/uL (0.0-0.16); EOSINOPHILS 0.3 %; EOSINOPHILS ABSOLUTE 0.07 10/3/uL (0.0-0.53); HEMOGLOBIN 8.4 g/dL (12.0-16.0); IMMATURE GRANULOCYTES 0.6 %; IMMATURE GRANULOCYTES ABSOLUTE 0.12 10/3/uL (0.0-0.11); LYMPHOCYTES 2.2 %; LYMPHOCYTES ABSOLUTE 0.45 10/3/uL (0.67-4.30); MEAN CORPUS HGB CONC 33.5 g/dL (32.0-36.0); MEAN CORPUSCULAR HEMOGLOB 30.9 pg (26.0-34.0); MEAN CORPUSCULAR VOLUME 92.3 fL (80-100); MONOCYTES 3.4 %; MONOCYTES ABSOLUTE 0.68 10/3/uL (0.21-1.20); NEUTROPHILS 93.5 %; PLATELET COUNT 129 10/3/uL (150-400); RBC DISTRIBUTION WIDTH 14.3 % (12.0-16.0); RED CELL COUNT 2.72 10/6/uL (4.0-5.6)
[2016-06-23 05:09] LABS: HEMATOCRIT 25.1 % (36.0-48.0); MANUAL DIFF NO %
[2016-06-23 05:18] LABS: A/G RATIO 0.6 (0.7-1.9); ALKALINE PHOSPHATASE 77 U/L (45-117); BUN (BLOOD UREA NITROGEN) 21 MG/DL (6-23); CALCIUM, SERUM 8.9 MG/DL (8.5-10.4); CHLORIDE, SERUM 102 MMOL/L (96-112); CK-MB 7.5 NG/ML; CKMB INDEX (NOT ORD) 0.6; CO2 (CARBON DIOXIDE) 23 MMOL/L (24-34); CPK 1301 U/L (0-200); CREATININE 2.98 MG/DL (0.55-1.02); GFR AFRICAN AMERICAN 22 ML/MIN (>=60); GFR NON AFRICAN AMERICAN 19 ML/MIN (>=60); GLOBULIN 3.2 G/DL (2.5-4.1); GLUCOSE, SERUM 96 MG/DL (60-99); SGOT(AST) 507 U/L (5-40); SGPT(ALT) 301 U/L (5-65); SODIUM, SERUM 138 MMOL/L (135-148); TOTAL BILIRUBIN 0.8 MG/DL (0-1.2); TOTAL PROTEIN 5.2 G/DL (6.0-8.5)
[2016-06-24 03:38] LABS: BE (BASE EXCESS) -2.6 MEQ/L (0 +/- 2.5); HCO3 (ACTUAL BICARBONATE) 22.9 MEQ/L (23-27); HEMOBLOGIN CONTENT 8.3 G/DL (12-16); INSTRUMENT SERIAL # 35151; METHEMOGLOBIN 0.9 % (0-3); MODE CMV; O2 CONTENT 11.7 VOL% (18-24); PCO2 (CO2 TENSION) 43 MMHG (35-45); PO2 (O2 TENSION) 139 MMHG (79-93); SAMPLE Arterial; TIDAL VOLUME 450 ML; pH 7.35 (7.37-7.43)
[2016-06-24 04:06] LABS: BASOPHILS 0.2 %; BASOPHILS ABSOLUTE 0.02 10/3/uL (0.0-0.16); EOSINOPHILS 1.4 %; EOSINOPHILS ABSOLUTE 0.14 10/3/uL (0.0-0.53); HEMOGLOBIN 7.8 g/dL (12.0-16.0); IMMATURE GRANULOCYTES 1.2 %; IMMATURE GRANULOCYTES ABSOLUTE 0.12 10/3/uL (0.0-0.11); LYMPHOCYTES 2.4 %; LYMPHOCYTES ABSOLUTE 0.24 10/3/uL (0.67-4.30); MEAN CORPUS HGB CONC 34.7 g/dL (32.0-36.0); MEAN CORPUSCULAR HEMOGLOB 31.7 pg (26.0-34.0); MEAN CORPUSCULAR VOLUME 91.5 fL (80-100); MEAN PLATELET VOLUME 9.7 fL (9.2-13.0); MONOCYTES 7.1 %; MONOCYTES ABSOLUTE 0.71 10/3/uL (0.21-1.20); NEUTROPHILS 87.7 %; NEUTROPHILS ABSOLUTE 8.76 10/3/uL (2.02-8.40); PLATELET COUNT 106 10/3/uL (150-400); RBC DISTRIBUTION WIDTH 13.9 % (12.0-16.0); RED CELL COUNT 2.46 10/6/uL (4.0-5.6)
[2016-06-24 04:11] LABS: HEMATOCRIT 22.5 % (36.0-48.0); MANUAL DIFF NO %
[2016-06-24 04:24] LABS: ALBUMIN 1.9 G/DL (3.5-5.0); ALKALINE PHOSPHATASE 71 U/L (45-117); CALCIUM, SERUM 8.3 MG/DL (8.5-10.4); CHLORIDE, SERUM 101 MMOL/L (96-112); CO2 (CARBON DIOXIDE) 23 MMOL/L (24-34); DIRECT BILIRUBIN 0.3 MG/DL (0.0-0.4); GFR AFRICAN AMERICAN 11 ML/MIN (>=60); GFR NON AFRICAN AMERICAN 10 ML/MIN (>=60); GLUCOSE, SERUM 93 MG/DL (60-99); INDIRECT BILIRUBIN(NOT ORDER) 0.9 MG/DL (0.1-0.9); PHOSPHORUS, SERUM 3.9 MG/DL (2.5-4.5); POTASSIUM, SERUM 3.6 MMOL/L (3.5-5.3); SGOT(AST) 243 U/L (5-40); SGPT(ALT) 228 U/L (5-65); SODIUM, SERUM 140 MMOL/L (135-148); TOTAL BILIRUBIN 1.2 MG/DL (0-1.2); TOTAL PROTEIN 5.2 G/DL (6.0-8.5)
[2016-06-24 04:29] LABS: BUN (BLOOD UREA NITROGEN) 37 MG/DL (6-23); CREATININE 5.28 MG/DL (0.55-1.02)
[2016-06-24 05:36] LABS: PROCALCITONIN > 200.00 ng/mL (<0.5)
[2016-06-25 04:04] LABS: HEMATOCRIT 21.5 % (36.0-48.0); HEMOGLOBIN 7.5 g/dL (12.0-16.0); MEAN CORPUS HGB CONC 34.9 g/dL (32.0-36.0); MEAN CORPUSCULAR HEMOGLOB 31.8 pg (26.0-34.0); MEAN CORPUSCULAR VOLUME 91.1 fL (80-100); MEAN PLATELET VOLUME 9.6 fL (9.2-13.0); RED CELL COUNT 2.36 10/6/uL (4.0-5.6); WHITE BLOOD CELLS 8.8 10/3/uL (4.5-10.5)
[2016-06-25 04:07] LABS: MANUAL DIFF YES %; PLATELET COUNT 138 10/3/uL (150-400)
[2016-06-25 04:35] LABS: A/G RATIO 0.6 (0.7-1.9); ALKALINE PHOSPHATASE 70 U/L (45-117); CALCIUM, SERUM 7.9 MG/DL (8.5-10.4); CHLORIDE, SERUM 106 MMOL/L (96-112); CO2 (CARBON DIOXIDE) 25 MMOL/L (24-34); GLOBULIN 3.5 G/DL (2.5-4.1); GLUCOSE, SERUM 109 MG/DL (60-99); POTASSIUM, SERUM 3.4 MMOL/L (3.5-5.3); SGOT(AST) 139 U/L (5-40); SGPT(ALT) 183 U/L (5-65); SODIUM, SERUM 142 MMOL/L (135-148); TOTAL PROTEIN 5.5 G/DL (6.0-8.5)
[2016-06-25 04:39] LABS: BUN (BLOOD UREA NITROGEN) 28 MG/DL (6-23); CREATININE 4.17 MG/DL (0.55-1.02); GFR AFRICAN AMERICAN 15 ML/MIN (>=60); GFR NON AFRICAN AMERICAN 13 ML/MIN (>=60); PHOSPHORUS, SERUM 2.1 MG/DL (2.5-4.5); TOTAL BILIRUBIN 0.6 MG/DL (0-1.2)
[2016-06-25 05:41] LABS: BAND NEUTROPHILS 12 %; EOSINOPHILS 1 %; EOSINOPHILS ABSOLUTE (CALC) 0.09 10/3/uL (0.0-0.53); LYMPHOCYTES 8 %; METAMYELOCYTES 3 %; MONOCYTES 3 %; MONOCYTES ABSOLUTE (CALC) 0.26 10/3/uL (0.21-1.20); MYELOCYTES 5 %; NEUTROPHILS ABSOLUTE (CALC) 7.04 10/3/uL (2.02-8.40); SEGMENTED NEUTROPHIL (0) 68 %; TOTAL NUCLEATED CELLS 100
[2016-06-25 05:42] LABS: PLATELET ESTIMATE SLT DEC (ADEQUATE); RBC MORPHOLOGY NORM (NORMAL)
[2016-06-26 04:51] LABS: ALBUMIN 1.8 G/DL (3.5-5.0); CALCIUM, SERUM 8.1 MG/DL (8.5-10.4); CHLORIDE, SERUM 103 MMOL/L (96-112); CO2 (CARBON DIOXIDE) 21 MMOL/L (24-34); GLUCOSE, SERUM 88 MG/DL (60-99); HEMATOCRIT 21.1 % (36.0-48.0); HEMOGLOBIN 7.4 g/dL (12.0-16.0); MEAN CORPUS HGB CONC 35.1 g/dL (32.0-36.0); MEAN CORPUSCULAR HEMOGLOB 31.6 pg (26.0-34.0); MEAN CORPUSCULAR VOLUME 90.2 fL (80-100); MEAN PLATELET VOLUME 9.6 fL (9.2-13.0); POTASSIUM, SERUM 3.4 MMOL/L (3.5-5.3); RBC DISTRIBUTION WIDTH 14.1 % (12.0-16.0); RED CELL COUNT 2.34 10/6/uL (4.0-5.6); SODIUM, SERUM 140 MMOL/L (135-148); WHITE BLOOD CELLS 9.8 10/3/uL (4.5-10.5)
[2016-06-26 04:52] LABS: BUN (BLOOD UREA NITROGEN) 54 MG/DL (6-23); CREATININE 6.05 MG/DL (0.55-1.02); GFR AFRICAN AMERICAN 9 ML/MIN (>=60); GFR NON AFRICAN AMERICAN 8 ML/MIN (>=60)
[2016-06-26 05:00] LABS: MANUAL DIFF YES %; PLATELET COUNT 189 10/3/uL (150-400)
[2016-06-26 06:06] LABS: PROCALCITONIN > 200.00 ng/mL (<0.5)
[2016-06-26 07:40] LABS: BAND NEUTROPHILS 8 %; IMMATURE GRANS ABSOLUTE (CALC) 1.08 10/3/uL (0.0-0.11); LYMPHOCYTES 10 %; LYMPHOCYTES ABSOLUTE (CALC) 0.98 10/3/uL (0.67-4.30); METAMYELOCYTES 8 %; MONOCYTES 12 %; MONOCYTES ABSOLUTE (CALC) 1.18 10/3/uL (0.21-1.20); MYELOCYTES 3 %; NEUTROPHILS ABSOLUTE (CALC) 6.57 10/3/uL (2.02-8.40); PLATELET ESTIMATE ADQ (ADEQUATE); RBC MORPHOLOGY NORM (NORMAL); SEGMENTED NEUTROPHIL (0) 59 %; TOTAL NUCLEATED CELLS 100
[2016-06-26 13:11] LABS: HEMATOCRIT 21.3 % (36.0-48.0); HEMOGLOBIN 7.4 g/dL (12.0-16.0)
[2016-06-26 23:16] LABS: HEMATOCRIT 20.9 % (36.0-48.0); HEMOGLOBIN 7.5 g/dL (12.0-16.0)
[2016-06-27 03:59] LABS: ALLENS TEST Pos; BE (BASE EXCESS) -1.5 MEQ/L (0 +/- 2.5); CARBOXYHEMOGLOBIN 0.3 % (0-3); HCO3 (ACTUAL BICARBONATE) 22.6 MEQ/L (23-27); HEMOBLOGIN CONTENT 9.5 G/DL (12-16); INSTRUMENT SERIAL # 35151; METHEMOGLOBIN 0.7 % (0-3); MODE CMV; O2 CONTENT 12.7 VOL% (18-24); OPERATOR ID 23712; PCO2 (CO2 TENSION) 35 MMHG (35-45); PO2 (O2 TENSION) 80 MMHG (79-93); SAMPLE Arterial; TIDAL VOLUME 400 ML; pH 7.42 (7.37-7.43)
[2016-06-27 04:45] LABS: HEMOGLOBIN 7.2 g/dL (12.0-16.0); MEAN CORPUS HGB CONC 34.8 g/dL (32.0-36.0); MEAN CORPUSCULAR HEMOGLOB 30.8 pg (26.0-34.0); MEAN CORPUSCULAR VOLUME 88.5 fL (80-100); MEAN PLATELET VOLUME 9.6 fL (9.2-13.0); PLATELET COUNT 239 10/3/uL (150-400); RBC DISTRIBUTION WIDTH 13.9 % (12.0-16.0); RED CELL COUNT 2.34 10/6/uL (4.0-5.6)
[2016-06-27 04:47] LABS: HEMATOCRIT 20.7 % (36.0-48.0); MANUAL DIFF YES %
[2016-06-27 04:49] LABS: A/G RATIO 0.5 (0.7-1.9); ALKALINE PHOSPHATASE 75 U/L (45-117); BUN (BLOOD UREA NITROGEN) 34 MG/DL (6-23); CALCIUM, SERUM 7.6 MG/DL (8.5-10.4); CHLORIDE, SERUM 101 MMOL/L (96-112); CO2 (CARBON DIOXIDE) 25 MMOL/L (24-34); CREATININE 4.25 MG/DL (0.55-1.02); GFR AFRICAN AMERICAN 14 ML/MIN (>=60); GFR NON AFRICAN AMERICAN 13 ML/MIN (>=60); GLOBULIN 3.7 G/DL (2.5-4.1); GLUCOSE, SERUM 89 MG/DL (60-99); PHOSPHORUS, SERUM 2.6 MG/DL (2.5-4.5); POTASSIUM, SERUM 3.1 MMOL/L (3.5-5.3); SGOT(AST) 82 U/L (5-40); SGPT(ALT) 130 U/L (5-65); SODIUM, SERUM 140 MMOL/L (135-148); TOTAL BILIRUBIN 0.7 MG/DL (0-1.2); TOTAL PROTEIN 5.7 G/DL (6.0-8.5)
[2016-06-27 05:17] LABS: BAND NEUTROPHILS 8 %; EOSINOPHILS 2 %; EOSINOPHILS ABSOLUTE (CALC) 0.26 10/3/uL (0.0-0.53); IMMATURE GRANS ABSOLUTE (CALC) 1.95 10/3/uL (0.0-0.11); LYMPHOCYTES 13 %; LYMPHOCYTES ABSOLUTE (CALC) 1.69 10/3/uL (0.67-4.30); METAMYELOCYTES 11 %; MONOCYTES 11 %; MONOCYTES ABSOLUTE (CALC) 1.43 10/3/uL (0.21-1.20); MYELOCYTES 4 %; NEUTROPHILS ABSOLUTE (CALC) 7.67 10/3/uL (2.02-8.40); SEGMENTED NEUTROPHIL (0) 51 %; TOTAL NUCLEATED CELLS 100
[2016-06-27 05:18] LABS: PLATELET ESTIMATE ADQ (ADEQUATE); RBC MORPHOLOGY NORM (NORMAL)
[2016-06-27 11:36] LABS: HEPATITIS B SURFACE ANTIGEN NON-REACTIVE (NON-REACT)
[2016-06-27 12:00] LABS: HEPATITIS C ANTIBODY NON-REACTIVE (NON-REACT)
[2016-06-27 12:01] LABS: HEPATITIS B CORE AB IGM NON-REACTIVE (NON-REAC)
[2016-06-27 12:04] LABS: HIV COMBO NON-REACTIVE (NON REAC)
[2016-06-27 12:05] LABS: HEP A ANTIBODY IGM NON-REACTIVE (NON-REACT)
[2016-06-27 17:43] LABS: HEMOGLOBIN 7.4 g/dL (12.0-16.0)
[2016-06-27 17:44] LABS: HEMATOCRIT 20.7 % (36.0-48.0)
[2016-06-27 22:30] LABS: HEMATOCRIT 21.2 % (36.0-48.0); HEMOGLOBIN 7.6 g/dL (12.0-16.0)
[2016-06-28 03:33] LABS: HEMATOCRIT 21.4 % (36.0-48.0); HEMOGLOBIN 7.5 g/dL (12.0-16.0); MEAN CORPUSCULAR HEMOGLOB 31.4 pg (26.0-34.0); MEAN CORPUSCULAR VOLUME 89.5 fL (80-100); MEAN PLATELET VOLUME 9.2 fL (9.2-13.0); PLATELET COUNT 264 10/3/uL (150-400); RBC DISTRIBUTION WIDTH 13.3 % (12.0-16.0); RED CELL COUNT 2.39 10/6/uL (4.0-5.6); WHITE BLOOD CELLS 15.2 10/3/uL (4.5-10.5)
[2016-06-28 03:41] LABS: MANUAL DIFF YES %
[2016-06-28 03:53] LABS: BUN (BLOOD UREA NITROGEN) 49 MG/DL (6-23); CALCIUM, SERUM 7.7 MG/DL (8.5-10.4); CHLORIDE, SERUM 99 MMOL/L (96-112); CO2 (CARBON DIOXIDE) 21 MMOL/L (24-34); GFR AFRICAN AMERICAN 10 ML/MIN (>=60); GFR NON AFRICAN AMERICAN 8 ML/MIN (>=60); GLUCOSE, SERUM 82 MG/DL (60-99); PHOSPHORUS, SERUM 4.5 MG/DL (2.5-4.5); POTASSIUM, SERUM 3.2 MMOL/L (3.5-5.3); SODIUM, SERUM 138 MMOL/L (135-148)
[2016-06-28 04:06] LABS: BAND NEUTROPHILS 10 %; EOSINOPHILS 2 %; IMMATURE GRANS ABSOLUTE (CALC) 2.13 10/3/uL (0.0-0.11); LYMPHOCYTES 15 %; LYMPHOCYTES ABSOLUTE (CALC) 2.28 10/3/uL (0.67-4.30); METAMYELOCYTES 9 %; MONOCYTES 12 %; MONOCYTES ABSOLUTE (CALC) 1.82 10/3/uL (0.21-1.20); MYELOCYTES 5 %; NEUTROPHILS ABSOLUTE (CALC) 8.66 10/3/uL (2.02-8.40); SEGMENTED NEUTROPHIL (0) 47 %; TOTAL NUCLEATED CELLS 100
[2016-06-28 04:07] LABS: TEARDROP SHAPED RBCS FEW (3-10/OIF)
[2016-06-28 04:49] LABS: PROCALCITONIN 88.35 ng/mL (<0.5)
[2016-06-28 16:26] LABS: HEMATOCRIT 21.1 % (36.0-48.0); HEMOGLOBIN 7.6 g/dL (12.0-16.0)
[2016-06-28 16:32] LABS: BUN (BLOOD UREA NITROGEN) 28 MG/DL (6-23); CALCIUM, SERUM 7.9 MG/DL (8.5-10.4); CHLORIDE, SERUM 101 MMOL/L (96-112); CO2 (CARBON DIOXIDE) 25 MMOL/L (24-34); CREATININE 3.56 MG/DL (0.55-1.02); GFR AFRICAN AMERICAN 18 ML/MIN (>=60); GFR NON AFRICAN AMERICAN 15 ML/MIN (>=60); GLUCOSE, SERUM 92 MG/DL (60-99); POTASSIUM, SERUM 3.3 MMOL/L (3.5-5.3); SODIUM, SERUM 140 MMOL/L (135-148)
[2016-06-29 04:06] LABS: MEAN CORPUSCULAR HEMOGLOB 30.5 pg (26.0-34.0); MEAN CORPUSCULAR VOLUME 87.2 fL (80-100); MEAN PLATELET VOLUME 9.4 fL (9.2-13.0); PLATELET COUNT 306 10/3/uL (150-400); RBC DISTRIBUTION WIDTH 13.6 % (12.0-16.0); RED CELL COUNT 2.26 10/6/uL (4.0-5.6); WHITE BLOOD CELLS 18.5 10/3/uL (4.5-10.5)
[2016-06-29 04:07] LABS: HEMATOCRIT 19.7 % (36.0-48.0); HEMOGLOBIN 6.9 g/dL (12.0-16.0)
[2016-06-29 04:08] LABS: CALCIUM, SERUM 8.1 MG/DL (8.5-10.4); CHLORIDE, SERUM 100 MMOL/L (96-112); CO2 (CARBON DIOXIDE) 23 MMOL/L (24-34); GLUCOSE, SERUM 83 MG/DL (60-99); MANUAL DIFF YES %; SODIUM, SERUM 139 MMOL/L (135-148)
[2016-06-29 04:11] LABS: BUN (BLOOD UREA NITROGEN) 35 MG/DL (6-23); CREATININE 4.84 MG/DL (0.55-1.02); GFR AFRICAN AMERICAN 12 ML/MIN (>=60); GFR NON AFRICAN AMERICAN 11 ML/MIN (>=60); PHOSPHORUS, SERUM 3.5 MG/DL (2.5-4.5)
[2016-06-29 04:33] LABS: BAND NEUTROPHILS 9 %; BASOPHILS 1 %; BASOPHILS ABSOLUTE (CALC) 0.19 10/3/uL (0.0-0.16); EOSINOPHILS 1 %; EOSINOPHILS ABSOLUTE (CALC) 0.19 10/3/uL (0.0-0.53); IMMATURE GRANS ABSOLUTE (CALC) 2.78 10/3/uL (0.0-0.11); LYMPHOCYTES 8 %; LYMPHOCYTES ABSOLUTE (CALC) 1.48 10/3/uL (0.67-4.30); METAMYELOCYTES 10 %; MONOCYTES 3 %; MONOCYTES ABSOLUTE (CALC) 0.56 10/3/uL (0.21-1.20); MYELOCYTES 5 %; NEUTROPHILS ABSOLUTE (CALC) 13.32 10/3/uL (2.02-8.40); OVALOCYTES 1+ (3-10/OIF) (0-2/OIF); SEGMENTED NEUTROPHIL (0) 63 %; TEARDROP SHAPED RBCS FEW (3-10/OIF); TOTAL NUCLEATED CELLS 100
[2016-06-29 04:38] LABS: PROCALCITONIN 49.32 ng/mL (<0.5)
[2016-06-30 03:50] LABS: MEAN CORPUS HGB CONC 36.4 g/dL (32.0-36.0); MEAN CORPUSCULAR HEMOGLOB 32.2 pg (26.0-34.0); MEAN CORPUSCULAR VOLUME 88.5 fL (80-100); MEAN PLATELET VOLUME 9.1 fL (9.2-13.0); PLATELET COUNT 312 10/3/uL (150-400); RBC DISTRIBUTION WIDTH 13.6 % (12.0-16.0); WHITE BLOOD CELLS 19.6 10/3/uL (4.5-10.5)
[2016-06-30 03:51] LABS: HEMATOCRIT 25.3 % (36.0-48.0); HEMOGLOBIN 9.2 g/dL (12.0-16.0); MANUAL DIFF YES %; RED CELL COUNT 2.86 10/6/uL (4.0-5.6)
[2016-06-30 04:09] LABS: A/G RATIO 0.5 (0.7-1.9); ALBUMIN 2.1 G/DL (3.5-5.0); ALKALINE PHOSPHATASE 79 U/L (45-117); CALCIUM, SERUM 7.9 MG/DL (8.5-10.4); CHLORIDE, SERUM 97 MMOL/L (96-112); CO2 (CARBON DIOXIDE) 24 MMOL/L (24-34); GLOBULIN 4.1 G/DL (2.5-4.1); GLUCOSE, SERUM 87 MG/DL (60-99); PHOSPHORUS, SERUM 4.1 MG/DL (2.5-4.5); SGOT(AST) 62 U/L (5-40); SGPT(ALT) 88 U/L (5-65); SODIUM, SERUM 138 MMOL/L (135-148); TOTAL PROTEIN 6.2 G/DL (6.0-8.5)
[2016-06-30 04:12] LABS: BUN (BLOOD UREA NITROGEN) 31 MG/DL (6-23); CREATININE 4.08 MG/DL (0.55-1.02); GFR AFRICAN AMERICAN 15 ML/MIN (>=60); GFR NON AFRICAN AMERICAN 13 ML/MIN (>=60); TOTAL BILIRUBIN 1.7 MG/DL (0-1.2)
[2016-06-30 05:56] LABS: BAND NEUTROPHILS 6 %; EOSINOPHILS 2 %; EOSINOPHILS ABSOLUTE (CALC) 0.39 10/3/uL (0.0-0.53); IMMATURE GRANS ABSOLUTE (CALC) 3.92 10/3/uL (0.0-0.11); LYMPHOCYTES 9 %; LYMPHOCYTES ABSOLUTE (CALC) 1.76 10/3/uL (0.67-4.30); METAMYELOCYTES 13 %; MONOCYTES 2 %; MONOCYTES ABSOLUTE (CALC) 0.39 10/3/uL (0.21-1.20); MYELOCYTES 7 %; NEUTROPHILS ABSOLUTE (CALC) 13.13 10/3/uL (2.02-8.40); PLATELET ESTIMATE ADQ (ADEQUATE); RBC MORPHOLOGY NORM (NORMAL); SEGMENTED NEUTROPHIL (0) 61 %; TOTAL NUCLEATED CELLS 100
[2016-07-01 05:05] LABS: HEMATOCRIT 25.9 % (36.0-48.0); HEMOGLOBIN 8.8 g/dL (12.0-16.0); MEAN CORPUSCULAR HEMOGLOB 30.2 pg (26.0-34.0); MEAN PLATELET VOLUME 9.5 fL (9.2-13.0); PLATELET COUNT 320 10/3/uL (150-400); RBC DISTRIBUTION WIDTH 13.9 % (12.0-16.0); RED CELL COUNT 2.91 10/6/uL (4.0-5.6); WHITE BLOOD CELLS 19.3 10/3/uL (4.5-10.5)
[2016-07-01 05:08] LABS: MANUAL DIFF YES %
[2016-07-01 05:17] LABS: ALBUMIN 2.1 G/DL (3.5-5.0); CALCIUM, SERUM 8.2 MG/DL (8.5-10.4); CHLORIDE, SERUM 98 MMOL/L (96-112); POTASSIUM, SERUM 3.5 MMOL/L (3.5-5.3); SODIUM, SERUM 137 MMOL/L (135-148)
[2016-07-01 05:22] LABS: BUN (BLOOD UREA NITROGEN) 51 MG/DL (6-23); CO2 (CARBON DIOXIDE) 18 MMOL/L (24-34); GFR AFRICAN AMERICAN 10 ML/MIN (>=60); GFR NON AFRICAN AMERICAN 9 ML/MIN (>=60); GLUCOSE, SERUM 69 MG/DL (60-99); PHOSPHORUS, SERUM 6.8 MG/DL (2.5-4.5)
[2016-07-01 05:58] LABS: BAND NEUTROPHILS 2 %; EOSINOPHILS 5 %; EOSINOPHILS ABSOLUTE (CALC) 0.97 10/3/uL (0.0-0.53); IMMATURE GRANS ABSOLUTE (CALC) 2.51 10/3/uL (0.0-0.11); LYMPHOCYTES 9 %; LYMPHOCYTES ABSOLUTE (CALC) 1.74 10/3/uL (0.67-4.30); METAMYELOCYTES 5 %; MONOCYTES 8 %; MONOCYTES ABSOLUTE (CALC) 1.54 10/3/uL (0.21-1.20); MYELOCYTES 8 %; NEUTROPHILS ABSOLUTE (CALC) 12.55 10/3/uL (2.02-8.40); PLATELET ESTIMATE ADQ (ADEQUATE); RBC MORPHOLOGY NORM (NORMAL); SEGMENTED NEUTROPHIL (0) 63 %; TOTAL NUCLEATED CELLS 100
[2016-07-02 04:58] LABS: HEMATOCRIT 26.8 % (36.0-48.0); HEMOGLOBIN 9.6 g/dL (12.0-16.0); MANUAL DIFF YES %; MEAN CORPUS HGB CONC 35.8 g/dL (32.0-36.0); MEAN CORPUSCULAR HEMOGLOB 31.7 pg (26.0-34.0); MEAN CORPUSCULAR VOLUME 88.4 fL (80-100); MEAN PLATELET VOLUME 9.3 fL (9.2-13.0); PLATELET COUNT 426 10/3/uL (150-400); RBC DISTRIBUTION WIDTH 13.8 % (12.0-16.0); RED CELL COUNT 3.03 10/6/uL (4.0-5.6); WHITE BLOOD CELLS 15.5 10/3/uL (4.5-10.5)
[2016-07-02 05:03] LABS: INTERNATIONAL NORMAL RATI 1.2 UNITS (-); PROTIME (NOT ORD) 15.1 SEC (12.0-14.5)
[2016-07-02 05:25] LABS: BAND NEUTROPHILS 1 %; IMMATURE GRANS ABSOLUTE (CALC) 2.17 10/3/uL (0.0-0.11); LYMPHOCYTES 13 %; LYMPHOCYTES ABSOLUTE (CALC) 2.02 10/3/uL (0.67-4.30); METAMYELOCYTES 10 %; MONOCYTES 4 %; MONOCYTES ABSOLUTE (CALC) 0.62 10/3/uL (0.21-1.20); MYELOCYTES 4 %; PLATELET ESTIMATE SLT INC (ADEQUATE); RBC MORPHOLOGY NORM (NORMAL); SEGMENTED NEUTROPHIL (0) 68 %; TOTAL NUCLEATED CELLS 100
[2016-07-02 05:26] LABS: A/G RATIO 0.5 (0.7-1.9); ALBUMIN 2.1 G/DL (3.5-5.0); ALKALINE PHOSPHATASE 72 U/L (45-117); CALCIUM, SERUM 8.2 MG/DL (8.5-10.4); CHLORIDE, SERUM 97 MMOL/L (96-112); CK-MB 7.4 NG/ML; DIRECT BILIRUBIN 0.4 MG/DL (0.0-0.4); GLOBULIN 4.3 G/DL (2.5-4.1); INDIRECT BILIRUBIN(NOT ORDER) 1.1 MG/DL (0.1-0.9); POTASSIUM, SERUM 3.4 MMOL/L (3.5-5.3); SGOT(AST) 40 U/L (5-40); SGPT(ALT) 60 U/L (5-65); SODIUM, SERUM 136 MMOL/L (135-148); TOTAL BILIRUBIN 1.5 MG/DL (0-1.2); TOTAL PROTEIN 6.4 G/DL (6.0-8.5)
[2016-07-02 05:49] LABS: BUN (BLOOD UREA NITROGEN) 67 MG/DL (6-23); CKMB INDEX (NOT ORD) 10.1; CO2 (CARBON DIOXIDE) 13 MMOL/L (24-34); CPK 73 U/L (0-200); CREATININE 7.78 MG/DL (0.55-1.02); GFR AFRICAN AMERICAN 7 ML/MIN (>=60); GFR NON AFRICAN AMERICAN 6 ML/MIN (>=60); GLUCOSE, SERUM 85 MG/DL (60-99); PHOSPHORUS, SERUM 8.1 MG/DL (2.5-4.5)
[2016-07-02 06:58] LABS: PROCALCITONIN 13.14 ng/mL (<0.5)
[2016-07-03 05:16] LABS: INTERNATIONAL NORMAL RATI 1.1 UNITS (-); PROTIME (NOT ORD) 14.4 SEC (12.0-14.5)
[2016-07-03 06:48] LABS: HEMATOCRIT 24.9 % (36.0-48.0); HEMOGLOBIN 8.8 g/dL (12.0-16.0); MEAN CORPUS HGB CONC 35.3 g/dL (32.0-36.0); MEAN CORPUSCULAR HEMOGLOB 31.2 pg (26.0-34.0); MEAN CORPUSCULAR VOLUME 88.3 fL (80-100); PLATELET COUNT 418 10/3/uL (150-400); RBC DISTRIBUTION WIDTH 13.9 % (12.0-16.0); RED CELL COUNT 2.82 10/6/uL (4.0-5.6); WHITE BLOOD CELLS 14.7 10/3/uL (4.5-10.5)
[2016-07-03 06:49] LABS: MANUAL DIFF YES %
[2016-07-03 07:07] LABS: ALBUMIN 2.3 G/DL (3.5-5.0); ALKALINE PHOSPHATASE 75 U/L (45-117); CALCIUM, SERUM 8.7 MG/DL (8.5-10.4); CHLORIDE, SERUM 96 MMOL/L (96-112); DIRECT BILIRUBIN 0.3 MG/DL (0.0-0.4); INDIRECT BILIRUBIN(NOT ORDER) 0.4 MG/DL (0.1-0.9); SGOT(AST) 33 U/L (5-40); SGPT(ALT) 56 U/L (5-65); SODIUM, SERUM 138 MMOL/L (135-148); TOTAL PROTEIN 6.4 G/DL (6.0-8.5)
[2016-07-03 07:10] LABS: BUN (BLOOD UREA NITROGEN) 41 MG/DL (6-23); CO2 (CARBON DIOXIDE) 25 MMOL/L (24-34); CREATININE 6.04 MG/DL (0.55-1.02); GFR AFRICAN AMERICAN 9 ML/MIN (>=60); GFR NON AFRICAN AMERICAN 8 ML/MIN (>=60); GLUCOSE, SERUM 151 MG/DL (60-99); PHOSPHORUS, SERUM 4.3 MG/DL (2.5-4.5); TOTAL BILIRUBIN 0.7 MG/DL (0-1.2)
[2016-07-03 07:14] LABS: BAND NEUTROPHILS 8 %; EOSINOPHILS 1 %; EOSINOPHILS ABSOLUTE (CALC) 0.15 10/3/uL (0.0-0.53); IMMATURE GRANS ABSOLUTE (CALC) 0.88 10/3/uL (0.0-0.11); LYMPHOCYTES 9 %; LYMPHOCYTES ABSOLUTE (CALC) 1.32 10/3/uL (0.67-4.30); METAMYELOCYTES 3 %; MONOCYTES 5 %; MONOCYTES ABSOLUTE (CALC) 0.74 10/3/uL (0.21-1.20); MYELOCYTES 3 %; NEUTROPHILS ABSOLUTE (CALC) 11.61 10/3/uL (2.02-8.40); SEGMENTED NEUTROPHIL (0) 71 %; TOTAL NUCLEATED CELLS 100
[2016-07-03 07:15] LABS: GIANT PLATELET RARE; PLATELET ESTIMATE SLT INC (ADEQUATE); POIKILOCYTOSIS 1+ (5-10/OIF) (0-5/OIF); SCHISTOCYTES OCC (0-2/OIF); TOXIC GRANULATION 1+
[2016-07-04 04:57] LABS: ALBUMIN 2.4 G/DL (3.5-5.0); BUN (BLOOD UREA NITROGEN) 58 MG/DL (6-23); CALCIUM, SERUM 8.7 MG/DL (8.5-10.4); CHLORIDE, SERUM 98 MMOL/L (96-112); CO2 (CARBON DIOXIDE) 25 MMOL/L (24-34); CREATININE 7.94 MG/DL (0.55-1.02); GFR AFRICAN AMERICAN 7 ML/MIN (>=60); GFR NON AFRICAN AMERICAN 6 ML/MIN (>=60); GLUCOSE, SERUM 100 MG/DL (60-99); PHOSPHORUS, SERUM 4.3 MG/DL (2.5-4.5); POTASSIUM, SERUM 3.5 MMOL/L (3.5-5.3); SODIUM, SERUM 139 MMOL/L (135-148)
[2016-07-04 05:00] LABS: HEMATOCRIT 24.5 % (36.0-48.0); HEMOGLOBIN 8.4 g/dL (12.0-16.0); MEAN CORPUS HGB CONC 34.3 g/dL (32.0-36.0); MEAN CORPUSCULAR HEMOGLOB 30.5 pg (26.0-34.0); MEAN CORPUSCULAR VOLUME 89.1 fL (80-100); MEAN PLATELET VOLUME 9.3 fL (9.2-13.0); PLATELET COUNT 429 10/3/uL (150-400); RBC DISTRIBUTION WIDTH 14.6 % (12.0-16.0); RED CELL COUNT 2.75 10/6/uL (4.0-5.6); WHITE BLOOD CELLS 15.2 10/3/uL (4.5-10.5)
[2016-07-04 05:01] LABS: MANUAL DIFF YES %
[2016-07-04 06:06] LABS: BAND NEUTROPHILS 4 %; BASOPHILS 3 %; BASOPHILS ABSOLUTE (CALC) 0.46 10/3/uL (0.0-0.16); EOSINOPHILS 1 %; EOSINOPHILS ABSOLUTE (CALC) 0.15 10/3/uL (0.0-0.53); LYMPHOCYTES 15 %; LYMPHOCYTES ABSOLUTE (CALC) 2.28 10/3/uL (0.67-4.30); MONOCYTES 1 %; MONOCYTES ABSOLUTE (CALC) 0.15 10/3/uL (0.21-1.20); NEUTROPHILS ABSOLUTE (CALC) 12.16 10/3/uL (2.02-8.40); SEGMENTED NEUTROPHIL (0) 76 %; TOTAL NUCLEATED CELLS 100
[2016-07-04 06:07] LABS: PLATELET ESTIMATE SLT INC (ADEQUATE); RBC MORPHOLOGY NORM (NORMAL)
[2016-07-05 06:45] LABS: HEMATOCRIT 26.8 % (36.0-48.0); HEMOGLOBIN 9.4 g/dL (12.0-16.0); MEAN CORPUS HGB CONC 35.1 g/dL (32.0-36.0); MEAN CORPUSCULAR HEMOGLOB 31.8 pg (26.0-34.0); MEAN CORPUSCULAR VOLUME 90.5 fL (80-100); MEAN PLATELET VOLUME 8.8 fL (9.2-13.0); PLATELET COUNT 418 10/3/uL (150-400); RBC DISTRIBUTION WIDTH 14.3 % (12.0-16.0); RED CELL COUNT 2.96 10/6/uL (4.0-5.6); WHITE BLOOD CELLS 14.7 10/3/uL (4.5-10.5)
[2016-07-05 06:49] LABS: MANUAL DIFF YES %
[2016-07-05 06:56] LABS: ALBUMIN 2.4 G/DL (3.5-5.0); BUN (BLOOD UREA NITROGEN) 41 MG/DL (6-23); CALCIUM, SERUM 8.9 MG/DL (8.5-10.4); CHLORIDE, SERUM 97 MMOL/L (96-112); CO2 (CARBON DIOXIDE) 26 MMOL/L (24-34); CREATININE 6.49 MG/DL (0.55-1.02); GFR AFRICAN AMERICAN 9 ML/MIN (>=60); GFR NON AFRICAN AMERICAN 7 ML/MIN (>=60); GLUCOSE, SERUM 135 MG/DL (60-99); PHOSPHORUS, SERUM 2.2 MG/DL (2.5-4.5); POTASSIUM, SERUM 3.7 MMOL/L (3.5-5.3); SODIUM, SERUM 137 MMOL/L (135-148)
[2016-07-05 07:09] LABS: BAND NEUTROPHILS 8 %; BASOPHILS 1 %; BASOPHILS ABSOLUTE (CALC) 0.15 10/3/uL (0.0-0.16); EOSINOPHILS 1 %; EOSINOPHILS ABSOLUTE (CALC) 0.15 10/3/uL (0.0-0.53); IMMATURE GRANS ABSOLUTE (CALC) 0.29 10/3/uL (0.0-0.11); LYMPHOCYTES 13 %; LYMPHOCYTES ABSOLUTE (CALC) 1.91 10/3/uL (0.67-4.30); METAMYELOCYTES 2 %; MONOCYTES 4 %; MONOCYTES ABSOLUTE (CALC) 0.59 10/3/uL (0.21-1.20); NEUTROPHILS ABSOLUTE (CALC) 11.61 10/3/uL (2.02-8.40); SEGMENTED NEUTROPHIL (0) 71 %; TOTAL NUCLEATED CELLS 100
[2016-07-05 07:10] LABS: PLATELET ESTIMATE ADQ (ADEQUATE); RBC MORPHOLOGY NORM (NORMAL)
[2016-07-05 07:26] LABS: PROCALCITONIN 4.01 ng/mL (<0.5)
[2016-07-06 09:51] LABS: HEMATOCRIT 25.7 % (36.0-48.0); MEAN CORPUSCULAR HEMOGLOB 31.4 pg (26.0-34.0); MEAN CORPUSCULAR VOLUME 89.5 fL (80-100); MEAN PLATELET VOLUME 8.8 fL (9.2-13.0); RED CELL COUNT 2.87 10/6/uL (4.0-5.6); WHITE BLOOD CELLS 15.2 10/3/uL (4.5-10.5)
[2016-07-06 09:52] LABS: MANUAL DIFF YES %; PLATELET COUNT 260 10/3/uL (150-400)
[2016-07-06 10:02] LABS: ALBUMIN 2.5 G/DL (3.5-5.0); CALCIUM, SERUM 9.3 MG/DL (8.5-10.4); CHLORIDE, SERUM 97 MMOL/L (96-112); CO2 (CARBON DIOXIDE) 25 MMOL/L (24-34); GFR AFRICAN AMERICAN 6 ML/MIN (>=60); GFR NON AFRICAN AMERICAN 5 ML/MIN (>=60); GLUCOSE, SERUM 132 MG/DL (60-99); PHOSPHORUS, SERUM 2.6 MG/DL (2.5-4.5); POTASSIUM, SERUM 3.9 MMOL/L (3.5-5.3); SODIUM, SERUM 136 MMOL/L (135-148)
[2016-07-06 10:06] LABS: BUN (BLOOD UREA NITROGEN) 67 MG/DL (6-23); CREATININE 9.05 MG/DL (0.55-1.02)
[2016-07-06 10:11] LABS: BAND NEUTROPHILS 2 %; EOSINOPHILS 2 %; IMMATURE GRANS ABSOLUTE (CALC) 0.61 10/3/uL (0.0-0.11); LYMPHOCYTES 9 %; LYMPHOCYTES ABSOLUTE (CALC) 1.37 10/3/uL (0.67-4.30); METAMYELOCYTES 4 %; MONOCYTES 7 %; MONOCYTES ABSOLUTE (CALC) 1.06 10/3/uL (0.21-1.20); NEUTROPHILS ABSOLUTE (CALC) 11.86 10/3/uL (2.02-8.40); PLATELET ESTIMATE ADQ (ADEQUATE); RBC MORPHOLOGY NORM (NORMAL); SEGMENTED NEUTROPHIL (0) 76 %; TOTAL NUCLEATED CELLS 100
[2016-07-07 12:02] LABS: FOLLICLE STIMULATING HORMONE 10.6 MIU/ML; LUTEINIZING HORMONE 2.5 MIU/ML
[2016-07-08 00:34] LABS: HEMATOCRIT 25.1 % (36.0-48.0); HEMOGLOBIN 8.8 g/dL (12.0-16.0); MEAN CORPUS HGB CONC 35.1 g/dL (32.0-36.0); MEAN CORPUSCULAR HEMOGLOB 31.5 pg (26.0-34.0); MEAN PLATELET VOLUME 9.7 fL (9.2-13.0); PLATELET COUNT 194 10/3/uL (150-400); RBC DISTRIBUTION WIDTH 14.2 % (12.0-16.0); RED CELL COUNT 2.79 10/6/uL (4.0-5.6)
[2016-07-08 00:35] LABS: MANUAL DIFF YES %; WHITE BLOOD CELLS 22.6 10/3/uL (4.5-10.5)
[2016-07-08 00:50] LABS: A/G RATIO 0.6 (0.7-1.9); ALBUMIN 2.6 G/DL (3.5-5.0); ALKALINE PHOSPHATASE 70 U/L (45-117); BUN (BLOOD UREA NITROGEN) 69 MG/DL (6-23); CALCIUM, SERUM 9.1 MG/DL (8.5-10.4); CHLORIDE, SERUM 98 MMOL/L (96-112); CO2 (CARBON DIOXIDE) 24 MMOL/L (24-34); GFR AFRICAN AMERICAN 6 ML/MIN (>=60); GFR NON AFRICAN AMERICAN 5 ML/MIN (>=60); GLOBULIN 4.1 G/DL (2.5-4.1); GLUCOSE, SERUM 130 MG/DL (60-99); SGOT(AST) 20 U/L (5-40); SGPT(ALT) 27 U/L (5-65); SODIUM, SERUM 134 MMOL/L (135-148); TOTAL BILIRUBIN 0.5 MG/DL (0-1.2); TOTAL PROTEIN 6.7 G/DL (6.0-8.5)
[2016-07-08 00:51] LABS: CREATININE 8.42 MG/DL (0.55-1.02)
[2016-07-08 00:54] LABS: POTASSIUM, SERUM 5.1 MMOL/L (3.5-5.3)
[2016-07-08 01:04] LABS: BAND NEUTROPHILS 2 %; IMMATURE GRANS ABSOLUTE (CALC) 0.45 10/3/uL (0.0-0.11); LYMPHOCYTES 4 %; METAMYELOCYTES 2 %; MONOCYTES 8 %; MONOCYTES ABSOLUTE (CALC) 1.81 10/3/uL (0.21-1.20); NEUTROPHILS ABSOLUTE (CALC) 19.44 10/3/uL (2.02-8.40); SEGMENTED NEUTROPHIL (0) 84 %; TOTAL NUCLEATED CELLS 100
[2016-07-08 01:05] LABS: PLATELET ESTIMATE ADQ (ADEQUATE); RBC MORPHOLOGY NORM (NORMAL)
[2016-07-08 06:02] LABS: HEMATOCRIT 25.8 % (36.0-48.0); HEMOGLOBIN 8.9 g/dL (12.0-16.0); MEAN CORPUS HGB CONC 34.5 g/dL (32.0-36.0); MEAN CORPUSCULAR HEMOGLOB 31.2 pg (26.0-34.0); MEAN CORPUSCULAR VOLUME 90.5 fL (80-100); MEAN PLATELET VOLUME 9.7 fL (9.2-13.0); PLATELET COUNT 207 10/3/uL (150-400); RBC DISTRIBUTION WIDTH 14.3 % (12.0-16.0); RED CELL COUNT 2.85 10/6/uL (4.0-5.6); WHITE BLOOD CELLS 23.7 10/3/uL (4.5-10.5)
[2016-07-08 06:03] LABS: MANUAL DIFF YES %
[2016-07-08 06:15] LABS: ALBUMIN 2.6 G/DL (3.5-5.0); BUN (BLOOD UREA NITROGEN) 71 MG/DL (6-23); CALCIUM, SERUM 9.3 MG/DL (8.5-10.4); CHLORIDE, SERUM 97 MMOL/L (96-112); CO2 (CARBON DIOXIDE) 23 MMOL/L (24-34); CREATININE 8.73 MG/DL (0.55-1.02); GFR AFRICAN AMERICAN 6 ML/MIN (>=60); GFR NON AFRICAN AMERICAN 5 ML/MIN (>=60); GLUCOSE, SERUM 122 MG/DL (60-99); POTASSIUM, SERUM 5.2 MMOL/L (3.5-5.3); SODIUM, SERUM 132 MMOL/L (135-148)
[2016-07-08 07:38] LABS: BAND NEUTROPHILS 1 %; EOSINOPHILS 1 %; EOSINOPHILS ABSOLUTE (CALC) 0.24 10/3/uL (0.0-0.53); LYMPHOCYTES 8 %; MONOCYTES 8 %; NEUTROPHILS ABSOLUTE (CALC) 19.67 10/3/uL (2.02-8.40); PLATELET ESTIMATE ADQ (ADEQUATE); RBC MORPHOLOGY NORM (NORMAL); SEGMENTED NEUTROPHIL (0) 82 %; TOTAL NUCLEATED CELLS 100
[2016-07-09 08:18] LABS: HEMATOCRIT 23.8 % (36.0-48.0); HEMOGLOBIN 8.2 g/dL (12.0-16.0); MEAN CORPUS HGB CONC 34.5 g/dL (32.0-36.0); MEAN CORPUSCULAR HEMOGLOB 30.9 pg (26.0-34.0); MEAN CORPUSCULAR VOLUME 89.8 fL (80-100); MEAN PLATELET VOLUME 10.1 fL (9.2-13.0); PLATELET COUNT 220 10/3/uL (150-400); RBC DISTRIBUTION WIDTH 14.9 % (12.0-16.0); RED CELL COUNT 2.65 10/6/uL (4.0-5.6)
[2016-07-09 08:19] LABS: WHITE BLOOD CELLS 28.5 10/3/uL (4.5-10.5)
[2016-07-09 08:20] LABS: MANUAL DIFF YES %
[2016-07-09 08:32] LABS: ALBUMIN 2.3 G/DL (3.5-5.0); CALCIUM, SERUM 8.6 MG/DL (8.5-10.4); CHLORIDE, SERUM 93 MMOL/L (96-112); CO2 (CARBON DIOXIDE) 25 MMOL/L (24-34); POTASSIUM, SERUM 4.7 MMOL/L (3.5-5.3); SODIUM, SERUM 132 MMOL/L (135-148)
[2016-07-09 08:33] LABS: BUN (BLOOD UREA NITROGEN) 55 MG/DL (6-23); CREATININE 6.92 MG/DL (0.55-1.02); GFR AFRICAN AMERICAN 8 ML/MIN (>=60); GFR NON AFRICAN AMERICAN 7 ML/MIN (>=60); GLUCOSE, SERUM 97 MG/DL (60-99); PHOSPHORUS, SERUM 4.4 MG/DL (2.5-4.5)
[2016-07-09 08:50] LABS: BAND NEUTROPHILS 4 %; LYMPHOCYTES 1 %; LYMPHOCYTES ABSOLUTE (CALC) 0.29 10/3/uL (0.67-4.30); MONOCYTES 5 %; MONOCYTES ABSOLUTE (CALC) 1.43 10/3/uL (0.21-1.20); NEUTROPHILS ABSOLUTE (CALC) 26.79 10/3/uL (2.02-8.40); PLATELET ESTIMATE ADQ (ADEQUATE); POLYCHROMASIA 1+ (2-5/OIF) (0-1/OIF); SEGMENTED NEUTROPHIL (0) 90 %; TOTAL NUCLEATED CELLS 100
[2016-07-09 08:51] LABS: GIANT PLATELET RARE
[2016-07-09 10:31] LABS: PROCALCITONIN 14.89 ng/mL (<0.5)
[2016-07-10 06:50] LABS: BASOPHILS 0.2 %; BASOPHILS ABSOLUTE 0.04 10/3/uL (0.0-0.16); EOSINOPHILS 0.5 %; EOSINOPHILS ABSOLUTE 0.09 10/3/uL (0.0-0.53); HEMATOCRIT 23.7 % (36.0-48.0); HEMOGLOBIN 8.2 g/dL (12.0-16.0); IMMATURE GRANULOCYTES ABSOLUTE 0.36 10/3/uL (0.0-0.11); LYMPHOCYTES 8.8 %; LYMPHOCYTES ABSOLUTE 1.55 10/3/uL (0.67-4.30); MANUAL DIFF NO %; MEAN CORPUS HGB CONC 34.6 g/dL (32.0-36.0); MEAN CORPUSCULAR HEMOGLOB 31.5 pg (26.0-34.0); MEAN CORPUSCULAR VOLUME 91.2 fL (80-100); MEAN PLATELET VOLUME 10.1 fL (9.2-13.0); MONOCYTES 8.5 %; NEUTROPHILS ABSOLUTE 14.09 10/3/uL (2.02-8.40); PLATELET COUNT 226 10/3/uL (150-400); RBC DISTRIBUTION WIDTH 14.7 % (12.0-16.0); WHITE BLOOD CELLS 17.6 10/3/uL (4.5-10.5)
[2016-07-10 07:04] LABS: ALBUMIN 2.7 G/DL (3.5-5.0); CALCIUM, SERUM 8.9 MG/DL (8.5-10.4); CHLORIDE, SERUM 91 MMOL/L (96-112); CO2 (CARBON DIOXIDE) 24 MMOL/L (24-34); GFR AFRICAN AMERICAN 10 ML/MIN (>=60); GFR NON AFRICAN AMERICAN 9 ML/MIN (>=60); GLUCOSE, SERUM 99 MG/DL (60-99); PHOSPHORUS, SERUM 4.4 MG/DL (2.5-4.5); POTASSIUM, SERUM 4.8 MMOL/L (3.5-5.3); SODIUM, SERUM 128 MMOL/L (135-148)
[2016-07-10 07:07] LABS: BUN (BLOOD UREA NITROGEN) 42 MG/DL (6-23); CREATININE 5.61 MG/DL (0.55-1.02)
[2016-07-10 08:10] LABS: PROCALCITONIN 15.99 ng/mL (<0.5)
[2016-07-11 06:27] LABS: BASOPHILS 1.1 %; EOSINOPHILS 1.9 %; EOSINOPHILS ABSOLUTE 0.18 10/3/uL (0.0-0.53); HEMATOCRIT 23.8 % (36.0-48.0); HEMOGLOBIN 8.1 g/dL (12.0-16.0); IMMATURE GRANULOCYTES 4.1 %; IMMATURE GRANULOCYTES ABSOLUTE 0.39 10/3/uL (0.0-0.11); LYMPHOCYTES 11.5 %; LYMPHOCYTES ABSOLUTE 1.09 10/3/uL (0.67-4.30); MEAN CORPUSCULAR HEMOGLOB 30.6 pg (26.0-34.0); MEAN CORPUSCULAR VOLUME 89.8 fL (80-100); MEAN PLATELET VOLUME 9.7 fL (9.2-13.0); MONOCYTES 11.6 %; NEUTROPHILS 69.8 %; NEUTROPHILS ABSOLUTE 6.59 10/3/uL (2.02-8.40); PLATELET COUNT 293 10/3/uL (150-400); RED CELL COUNT 2.65 10/6/uL (4.0-5.6)
[2016-07-11 06:33] LABS: ALBUMIN 2.6 G/DL (3.5-5.0); CALCIUM, SERUM 8.5 MG/DL (8.5-10.4); CHLORIDE, SERUM 94 MMOL/L (96-112); CO2 (CARBON DIOXIDE) 24 MMOL/L (24-34); GFR AFRICAN AMERICAN 13 ML/MIN (>=60); GFR NON AFRICAN AMERICAN 12 ML/MIN (>=60); GLUCOSE, SERUM 90 MG/DL (60-99); PHOSPHORUS, SERUM 4.3 MG/DL (2.5-4.5); POTASSIUM, SERUM 4.4 MMOL/L (3.5-5.3); SODIUM, SERUM 129 MMOL/L (135-148)
[2016-07-11 06:34] LABS: BUN (BLOOD UREA NITROGEN) 33 MG/DL (6-23); CREATININE 4.53 MG/DL (0.55-1.02)
[2016-07-11 06:39] LABS: MANUAL DIFF NO %; WHITE BLOOD CELLS 9.5 10/3/uL (4.5-10.5)
[2016-07-12 08:54] LABS: HEMATOCRIT 22.6 % (36.0-48.0); HEMOGLOBIN 7.9 g/dL (12.0-16.0); MEAN CORPUSCULAR HEMOGLOB 31.5 pg (26.0-34.0); MEAN PLATELET VOLUME 8.9 fL (9.2-13.0); PLATELET COUNT 312 10/3/uL (150-400); RBC DISTRIBUTION WIDTH 13.9 % (12.0-16.0); RED CELL COUNT 2.51 10/6/uL (4.0-5.6); WHITE BLOOD CELLS 10.1 10/3/uL (4.5-10.5)
[2016-07-12 08:56] LABS: MANUAL DIFF YES %
[2016-07-12 09:02] LABS: ALBUMIN 2.5 G/DL (3.5-5.0); CALCIUM, SERUM 8.5 MG/DL (8.5-10.4); CHLORIDE, SERUM 88 MMOL/L (96-112); CO2 (CARBON DIOXIDE) 22 MMOL/L (24-34); GFR AFRICAN AMERICAN 8 ML/MIN (>=60); GFR NON AFRICAN AMERICAN 7 ML/MIN (>=60); GLUCOSE, SERUM 92 MG/DL (60-99); PHOSPHORUS, SERUM 4.8 MG/DL (2.5-4.5); POTASSIUM, SERUM 5.2 MMOL/L (3.5-5.3); SODIUM, SERUM 127 MMOL/L (135-148)
[2016-07-12 09:03] LABS: BUN (BLOOD UREA NITROGEN) 57 MG/DL (6-23); CREATININE 6.92 MG/DL (0.55-1.02)
[2016-07-12 09:38] LABS: BAND NEUTROPHILS 4 %; BASOPHILS 1 %; EOSINOPHILS 4 %; IMMATURE GRANS ABSOLUTE (CALC) 0.61 10/3/uL (0.0-0.11); LYMPHOCYTES 8 %; LYMPHOCYTES ABSOLUTE (CALC) 0.81 10/3/uL (0.67-4.30); METAMYELOCYTES 3 %; MONOCYTES 10 %; MONOCYTES ABSOLUTE (CALC) 1.01 10/3/uL (0.21-1.20); MYELOCYTES 3 %; NEUTROPHILS ABSOLUTE (CALC) 7.17 10/3/uL (2.02-8.40); PLATELET ESTIMATE ADQ (ADEQUATE); POLYCHROMASIA 1+ (2-5/OIF) (0-1/OIF); SEGMENTED NEUTROPHIL (0) 67 %; TOTAL NUCLEATED CELLS 100
[2016-07-13 05:37] LABS: HEMATOCRIT 23.6 % (36.0-48.0); MEAN CORPUS HGB CONC 33.9 g/dL (32.0-36.0); MEAN CORPUSCULAR HEMOGLOB 31.3 pg (26.0-34.0); MEAN CORPUSCULAR VOLUME 92.2 fL (80-100); MEAN PLATELET VOLUME 8.7 fL (9.2-13.0); PLATELET COUNT 310 10/3/uL (150-400); RBC DISTRIBUTION WIDTH 14.5 % (12.0-16.0); RED CELL COUNT 2.56 10/6/uL (4.0-5.6); WHITE BLOOD CELLS 8.6 10/3/uL (4.5-10.5)
[2016-07-13 05:38] LABS: MANUAL DIFF YES %
[2016-07-13 05:49] LABS: ALBUMIN 2.3 G/DL (3.5-5.0); BUN (BLOOD UREA NITROGEN) 29 MG/DL (6-23); CALCIUM, SERUM 8.3 MG/DL (8.5-10.4); CHLORIDE, SERUM 92 MMOL/L (96-112); CO2 (CARBON DIOXIDE) 25 MMOL/L (24-34); CREATININE 5.02 MG/DL (0.55-1.02); GFR AFRICAN AMERICAN 12 ML/MIN (>=60); GFR NON AFRICAN AMERICAN 10 ML/MIN (>=60); GLUCOSE, SERUM 93 MG/DL (60-99); PHOSPHORUS, SERUM 4.4 MG/DL (2.5-4.5); POTASSIUM, SERUM 4.4 MMOL/L (3.5-5.3); SODIUM, SERUM 130 MMOL/L (135-148)
[2016-07-13 06:12] LABS: BAND NEUTROPHILS 9 %; BASOPHILS 1 %; BASOPHILS ABSOLUTE (CALC) 0.09 10/3/uL (0.0-0.16); EOSINOPHILS 5 %; EOSINOPHILS ABSOLUTE (CALC) 0.43 10/3/uL (0.0-0.53); IMMATURE GRANS ABSOLUTE (CALC) 0.34 10/3/uL (0.0-0.11); LYMPHOCYTES 22 %; LYMPHOCYTES ABSOLUTE (CALC) 1.89 10/3/uL (0.67-4.30); METAMYELOCYTES 2 %; MONOCYTES 5 %; MONOCYTES ABSOLUTE (CALC) 0.43 10/3/uL (0.21-1.20); MYELOCYTES 2 %; NEUTROPHILS ABSOLUTE (CALC) 5.42 10/3/uL (2.02-8.40); PLATELET ESTIMATE ADQ (ADEQUATE); SEGMENTED NEUTROPHIL (0) 54 %; TOTAL NUCLEATED CELLS 100
[2016-07-13 06:13] LABS: POLYCHROMASIA 1+ (2-5/OIF) (0-1/OIF)
[2016-07-14 06:13] LABS: BUN (BLOOD UREA NITROGEN) 47 MG/DL (6-23); CALCIUM, SERUM 8.4 MG/DL (8.5-10.4); CHLORIDE, SERUM 88 MMOL/L (96-112); CO2 (CARBON DIOXIDE) 23 MMOL/L (24-34); CREATININE 7.19 MG/DL (0.55-1.02); GFR AFRICAN AMERICAN 8 ML/MIN (>=60); GFR NON AFRICAN AMERICAN 7 ML/MIN (>=60); GLUCOSE, SERUM 88 MG/DL (60-99); SODIUM, SERUM 125 MMOL/L (135-148)
[2016-07-15 09:29] LABS: MEAN CORPUS HGB CONC 35.2 g/dL (32.0-36.0); MEAN CORPUSCULAR HEMOGLOB 30.7 pg (26.0-34.0); MEAN PLATELET VOLUME 8.3 fL (9.2-13.0); RBC DISTRIBUTION WIDTH 14.6 % (12.0-16.0); RED CELL COUNT 2.28 10/6/uL (4.0-5.6); WHITE BLOOD CELLS 6.8 10/3/uL (4.5-10.5)
[2016-07-15 09:38] LABS: HEMATOCRIT 19.9 % (36.0-48.0); MEAN CORPUSCULAR VOLUME 87.3 fL (80-100); PLATELET COUNT 211 10/3/uL (150-400)
[2016-07-15 09:39] LABS: MANUAL DIFF YES %
[2016-07-15 09:41] LABS: ALBUMIN 2.2 G/DL (3.5-5.0); CALCIUM, SERUM 8.2 MG/DL (8.5-10.4); CHLORIDE, SERUM 91 MMOL/L (96-112); CO2 (CARBON DIOXIDE) 22 MMOL/L (24-34); CREATININE 6.83 MG/DL (0.55-1.02); GFR AFRICAN AMERICAN 8 ML/MIN (>=60); GFR NON AFRICAN AMERICAN 7 ML/MIN (>=60); PHOSPHORUS, SERUM 3.6 MG/DL (2.5-4.5); POTASSIUM, SERUM 4.5 MMOL/L (3.5-5.3); SODIUM, SERUM 129 MMOL/L (135-148)
[2016-07-15 09:42] LABS: BUN (BLOOD UREA NITROGEN) 51 MG/DL (6-23); GLUCOSE, SERUM 111 MG/DL (60-99)
[2016-07-15 09:56] LABS: BAND NEUTROPHILS 6 %; BASOPHILS 1 %; BASOPHILS ABSOLUTE (CALC) 0.07 10/3/uL (0.0-0.16); EOSINOPHILS 5 %; EOSINOPHILS ABSOLUTE (CALC) 0.34 10/3/uL (0.0-0.53); IMMATURE GRANS ABSOLUTE (CALC) 0.48 10/3/uL (0.0-0.11); LYMPHOCYTES 13 %; LYMPHOCYTES ABSOLUTE (CALC) 0.88 10/3/uL (0.67-4.30); METAMYELOCYTES 7 %; NEUTROPHILS ABSOLUTE (CALC) 5.03 10/3/uL (2.02-8.40); SEGMENTED NEUTROPHIL (0) 68 %; TOTAL NUCLEATED CELLS 100
[2016-07-15 09:57] LABS: PLATELET ESTIMATE ADQ (ADEQUATE); POLYCHROMASIA 1+ (2-5/OIF) (0-1/OIF)
[2016-07-15 10:02] LABS: MEAN CORPUS HGB CONC 35.2 g/dL (32.0-36.0); MEAN CORPUSCULAR HEMOGLOB 30.3 pg (26.0-34.0); PLATELET COUNT 188 10/3/uL (150-400); RBC DISTRIBUTION WIDTH 14.5 % (12.0-16.0); RED CELL COUNT 2.28 10/6/uL (4.0-5.6); WHITE BLOOD CELLS 7.2 10/3/uL (4.5-10.5)
[2016-07-15 10:03] LABS: HEMATOCRIT 19.6 % (36.0-48.0); HEMOGLOBIN 6.9 g/dL (12.0-16.0)
[2016-07-15 10:04] LABS: MANUAL DIFF YES %
[2016-07-15 10:31] LABS: IMMATURE GRANS ABSOLUTE (CALC) 1.08 10/3/uL (0.0-0.11); LYMPHOCYTES 10 %; LYMPHOCYTES ABSOLUTE (CALC) 0.72 10/3/uL (0.67-4.30); METAMYELOCYTES 9 %; MONOCYTES 7 %; MYELOCYTES 6 %; SEGMENTED NEUTROPHIL (0) 68 %; TOTAL NUCLEATED CELLS 100
[2016-07-15 10:32] LABS: PLATELET ESTIMATE ADQ (ADEQUATE); POLYCHROMASIA 1+ (2-5/OIF) (0-1/OIF); TOXIC GRANULATION 2+
[2016-07-16 05:04] LABS: MEAN CORPUS HGB CONC 35.5 g/dL (32.0-36.0); MEAN CORPUSCULAR HEMOGLOB 31.3 pg (26.0-34.0); MEAN CORPUSCULAR VOLUME 88.3 fL (80-100); MEAN PLATELET VOLUME 8.2 fL (9.2-13.0); PLATELET COUNT 141 10/3/uL (150-400); RBC DISTRIBUTION WIDTH 15.5 % (12.0-16.0); WHITE BLOOD CELLS 8.7 10/3/uL (4.5-10.5)
[2016-07-16 05:06] LABS: HEMATOCRIT 26.5 % (36.0-48.0); HEMOGLOBIN 9.4 g/dL (12.0-16.0); MANUAL DIFF YES %
[2016-07-16 05:36] LABS: ALBUMIN 2.2 G/DL (3.5-5.0); CHLORIDE, SERUM 98 MMOL/L (96-112); CO2 (CARBON DIOXIDE) 24 MMOL/L (24-34); GFR AFRICAN AMERICAN 15 ML/MIN (>=60); GFR NON AFRICAN AMERICAN 13 ML/MIN (>=60); GLUCOSE, SERUM 93 MG/DL (60-99); POTASSIUM, SERUM 4.1 MMOL/L (3.5-5.3); SODIUM, SERUM 133 MMOL/L (135-148)
[2016-07-16 05:38] LABS: BAND NEUTROPHILS 1 %; BUN (BLOOD UREA NITROGEN) 18 MG/DL (6-23); CREATININE 4.15 MG/DL (0.55-1.02); EOSINOPHILS 2 %; EOSINOPHILS ABSOLUTE (CALC) 0.17 10/3/uL (0.0-0.53); IMMATURE GRANS ABSOLUTE (CALC) 0.87 10/3/uL (0.0-0.11); LYMPHOCYTES 23 %; METAMYELOCYTES 6 %; MONOCYTES 8 %; MYELOCYTES 4 %; NEUTROPHILS ABSOLUTE (CALC) 4.96 10/3/uL (2.02-8.40); PLATELET ESTIMATE ADQ (ADEQUATE); RBC MORPHOLOGY NORM (NORMAL); SEGMENTED NEUTROPHIL (0) 56 %; TOTAL NUCLEATED CELLS 100
[2016-07-17 06:22] LABS: HEMATOCRIT 29.1 % (36.0-48.0); HEMOGLOBIN 10.2 g/dL (12.0-16.0); MANUAL DIFF YES %; MEAN CORPUS HGB CONC 35.1 g/dL (32.0-36.0); MEAN CORPUSCULAR VOLUME 88.4 fL (80-100); MEAN PLATELET VOLUME 8.6 fL (9.2-13.0); PLATELET COUNT 130 10/3/uL (150-400); RBC DISTRIBUTION WIDTH 14.8 % (12.0-16.0); RED CELL COUNT 3.29 10/6/uL (4.0-5.6); WHITE BLOOD CELLS 10.9 10/3/uL (4.5-10.5)
[2016-07-17 06:36] LABS: ALBUMIN 2.4 G/DL (3.5-5.0); CALCIUM, SERUM 8.7 MG/DL (8.5-10.4); CHLORIDE, SERUM 95 MMOL/L (96-112); CO2 (CARBON DIOXIDE) 22 MMOL/L (24-34); GFR AFRICAN AMERICAN 10 ML/MIN (>=60); GFR NON AFRICAN AMERICAN 9 ML/MIN (>=60); GLUCOSE, SERUM 94 MG/DL (60-99); PHOSPHORUS, SERUM 3.6 MG/DL (2.5-4.5); POTASSIUM, SERUM 4.7 MMOL/L (3.5-5.3); SODIUM, SERUM 131 MMOL/L (135-148)
[2016-07-17 06:37] LABS: BUN (BLOOD UREA NITROGEN) 31 MG/DL (6-23); CREATININE 5.77 MG/DL (0.55-1.02)
[2016-07-17 06:51] LABS: BAND NEUTROPHILS 1 %; BASOPHILS 3 %; BASOPHILS ABSOLUTE (CALC) 0.33 10/3/uL (0.0-0.16); EOSINOPHILS 1 %; EOSINOPHILS ABSOLUTE (CALC) 0.11 10/3/uL (0.0-0.53); IMMATURE GRANS ABSOLUTE (CALC) 0.33 10/3/uL (0.0-0.11); LYMPHOCYTES 14 %; LYMPHOCYTES ABSOLUTE (CALC) 1.53 10/3/uL (0.67-4.30); METAMYELOCYTES 3 %; MONOCYTES 1 %; MONOCYTES ABSOLUTE (CALC) 0.11 10/3/uL (0.21-1.20); PLATELET ESTIMATE DEC (ADEQUATE); RBC MORPHOLOGY NORM (NORMAL); SEGMENTED NEUTROPHIL (0) 77 %; TOTAL NUCLEATED CELLS 100
[2016-07-18 06:43] LABS: BASOPHILS 0.9 %; BASOPHILS ABSOLUTE 0.06 10/3/uL (0.0-0.16); EOSINOPHILS 1.9 %; EOSINOPHILS ABSOLUTE 0.13 10/3/uL (0.0-0.53); HEMATOCRIT 28.4 % (36.0-48.0); HEMOGLOBIN 9.7 g/dL (12.0-16.0); IMMATURE GRANULOCYTES 4.9 %; IMMATURE GRANULOCYTES ABSOLUTE 0.33 10/3/uL (0.0-0.11); LYMPHOCYTES 17.6 %; MEAN CORPUS HGB CONC 34.2 g/dL (32.0-36.0); MEAN CORPUSCULAR HEMOGLOB 30.8 pg (26.0-34.0); MEAN CORPUSCULAR VOLUME 90.2 fL (80-100); MONOCYTES 17.2 %; MONOCYTES ABSOLUTE 1.17 10/3/uL (0.21-1.20); NEUTROPHILS 57.5 %; NEUTROPHILS ABSOLUTE 3.91 10/3/uL (2.02-8.40); RBC DISTRIBUTION WIDTH 14.8 % (12.0-16.0); RED CELL COUNT 3.15 10/6/uL (4.0-5.6); WHITE BLOOD CELLS 6.8 10/3/uL (4.5-10.5)
[2016-07-18 06:45] LABS: MANUAL DIFF NO %; PLATELET COUNT 81 10/3/uL (150-400)
[2016-07-18 06:56] LABS: ALBUMIN 2.4 G/DL (3.5-5.0); BUN (BLOOD UREA NITROGEN) 20 MG/DL (6-23); CALCIUM, SERUM 8.2 MG/DL (8.5-10.4); CHLORIDE, SERUM 98 MMOL/L (96-112); CO2 (CARBON DIOXIDE) 27 MMOL/L (24-34); GFR AFRICAN AMERICAN 15 ML/MIN (>=60); GFR NON AFRICAN AMERICAN 13 ML/MIN (>=60); GLUCOSE, SERUM 85 MG/DL (60-99); PHOSPHORUS, SERUM 3.3 MG/DL (2.5-4.5); POTASSIUM, SERUM 4.2 MMOL/L (3.5-5.3); SODIUM, SERUM 134 MMOL/L (135-148)
[2016-07-18] MEDS ORDERED: LAMICTAL25 PO (18:14)
[2016-07-18] MEDS ORDERED: NORV10 PO (18:20)
[2016-07-18] MEDS ORDERED: DEPAKOT500 PO (18:21)
[2016-07-18] MEDS ORDERED: LEXAPRO10 PO (18:22)
[2016-07-18] MEDS ORDERED: TRANDAT300 PO (18:22)
[2016-07-18] MEDS ORDERED: OCEAN NAS (18:23)
[2016-07-18] MEDS ORDERED: MELA3 PO (18:23)
[2016-07-18] MEDS ORDERED: KLONO2 PO (18:24)
== END 2016-07-18 19:53 | disposition home or self-care (01) | DRG 207 ==
LOC: CCU 12:48 → 6NO 07-02 15:39
PROVIDERS: Hospitalist; Internal Medicine; Internal Medicine Critical Care Medicine; Internal Medicine Nephrology; Nurse Practitioner Family; Psychiatry & Neurology Neurology; Registered Nurse
PROC: 5A09457 Assistance with Respiratory Ventilation, 24-96 Consecutive Hours, Continuous Positive Airway Pressure (ICD-10-PCS; principal; 2016-06-20)
PROC: 5A1955Z Respiratory Ventilation, Greater than 96 Consecutive Hours (ICD-10-PCS; 2016-06-20)
PROC: 02H633Z Insertion of Infusion Device into Right Atrium, Percutaneous Approach (ICD-10-PCS; 2016-06-20)
PROC: B244ZZZ Ultrasonography of Right Heart (ICD-10-PCS; 2016-06-20)
PROC: 0BH17EZ Insertion of Endotracheal Airway into Trachea, Via Natural or Artificial Opening (ICD-10-PCS; 2016-06-20)
PROC: 02HV33Z Insertion of Infusion Device into Superior Vena Cava, Percutaneous Approach (ICD-10-PCS; 2016-06-20)
PROC: 5A1D60Z (ICD-10-PCS; 2016-06-24)
PROC: 06H033Z Insertion of Infusion Device into Inferior Vena Cava, Percutaneous Approach (ICD-10-PCS; 2016-06-25)
PROC: B5191ZA Fluoroscopy of Inferior Vena Cava using Low Osmolar Contrast, Guidance (ICD-10-PCS; 2016-06-25)
PROC: 0CJS8ZZ Inspection of Larynx, Via Natural or Artificial Opening Endoscopic (ICD-10-PCS; 2016-07-10)
PROC: 30233N1 Transfusion of Nonautologous Red Blood Cells into Peripheral Vein, Percutaneous Approach (ICD-10-PCS; 2016-07-15)
DX: J96.22 Acute and chronic respiratory failure with hypercapnia (principal); G92 Toxic encephalopathy; E87.2 Acidosis; F05 Delirium due to known physiological condition; I48.91 Unspecified atrial fibrillation; N17.9 Acute kidney failure, unspecified; M62.82 Rhabdomyolysis; I12.0 Hypertensive chronic kidney disease with stage 5 chronic kidney disease or end stage renal disease; N18.6 End stage renal disease; G40.901 Epilepsy, unspecified, not intractable, with status epilepticus; E87.1 Hypo-osmolality and hyponatremia; J44.1 Chronic obstructive pulmonary disease with (acute) exacerbation; R13.12 Dysphagia, oropharyngeal phase; J96.21 Acute and chronic respiratory failure with hypoxia; R49.0 Dysphonia; F41.9 Anxiety disorder, unspecified; F31.9 Bipolar disorder, unspecified; D64.9 Anemia, unspecified; F90.9 Attention-deficit hyperactivity disorder, unspecified type; Z99.81 Dependence on supplemental oxygen; Z86.010 Personal history of colon polyps; Z87.891 Personal history of nicotine dependence; Z82.49 Family history of ischemic heart disease and other diseases of the circulatory system; Z82.5 Family history of asthma and other chronic lower respiratory diseases; Z98.890 Other specified postprocedural states; Z99.2 Dependence on renal dialysis
CPT/HCPCS: 31720; 36415; 36558; 36569-52; 36593; 36600; 70490; 70551; 71010; 74000; 74230; 76700; 76937; 77001; 78580; 80048; 80053; 80069; 80074; 80076; 81001; 82140; 82248; 82330; 82397; 82550; 82553; 82670; 82803; 82805; 82947; 82962; 83001; 83002; 83735; 83880; 84100; 84132; 84134; 84145; 84295; 85014; 85018; 85025; 85610; 86850; 86900; 86901; 86920; 87040; 87070; 87205; 87389; 87641; 92610-GN; 92611-GN; 93005; 93306; 94002; 94003; 94640; 94660; 94770; 95819; 97110-GO; 97110-GP; 97116-GP; 97161-GP; 97164-GP; 97166-GO; 97530-GP; 97535-GO; 99152; 99153; A9270-GY; A9540; C1750; C1752; C1769; C1894; C9113; G0257; G8987-CL-GO; G8988-CK-GO; J0360; J0610; J0780; J1170; J1953; J2250; J2405; J2543; J2997; J3010; J3370; J3411; P9016; P9047

== ENCOUNTER 2016-07-29 19:01 | Inpatient (IN) | payer OTHER ==
--- NOTE | ~2016-07-29 | CN ---
Consultation Report [facility] [address] [place]. [address] NAME: TOM GUERRIER : 78 STATUS : ADM IN PAT#: [id number] AGE: 36 ADM/REG DATE : 07/29/16 MR#: [id number] REPORT SERV DATE: 07/30/16 DICTATED BY: MELLISSA ALVARES DATE: 07/30/16 REPORT STATUS : Draft TRANSCRIBED BY: MODL DATE: 07/30/16 NEUROLOGY CONSULTATION DATE OF CONSULTATION: 07/30/2016 REASON FOR CONSULTATION: Tremor. NEUROLOGIST: Wood Drummond MD. PSYCHIATRIST: Dr. Raj Almendarez. HISTORY OF PRESENT ILLNESS: The patient is a 36-year-old female, who had a tonic-clonic seizure and status epilepticus on the 06/18/2016. Consequently, she developed rhabdomyolysis and acute kidney injury. She was hospitalized for at least 30 days and was placed on hemodialysis. She was sent home, but came back to the hospital because she developed swelling on the left side of her neck. She had a full a CTA of the neck which revealed that she did have a subacute thrombus most likely related to catheter placement. She has been placed on a heparin drip and has had Vascular Surgery consultation. Neurology has been consulted because of complaint of tremor. According to the patient and her mother, the patient has fine tremor in her hands, jaw, and chin for 30 to 45 minutes after taking her dosage of Depakote and Lamictal. This has been going on consistently for the last week to week and a half. The patient denies having tremor prior to being placed on this medication. When questioned more extensively about her seizure activity on the 06/18/2016, the patient and mother mention that the patient abruptly stopped taking her Klonopin and consequently was told that her seizure activity was due to abrupt withdrawal. PAST MEDICAL HISTORY: Encephalopathy, status epilepticus, seizure, ADD, hypertension, bipolar disorder, acute kidney injury, rhabdomyolysis, asthma, depression, anxiety, anemia, history of respiratory failure, and endometriosis. PAST SURGICAL HISTORY: Breast augmentation, tonsillectomy, adenoidectomy, oral cancer removal, skin cancer removal, control implant and removal, fallopian tube removal, and uterine ablation. HOME MEDICATIONS: List includes Tylenol p.r.n., Norvasc 10 mg q. day, Klonopin 1 mg at bedtime, Depakote 1000 mg b.i.d., Lexapro 10 mg a day, labetalol 300 mg b.i.d., Lamictal 25 mg b.i.d., Claritin 10 mg q. day, and melatonin 3 mg at bedtime. ALLERGIES: NONE. SOCIAL HISTORY: The patient is . She lives alone. She is currently unemployed. Consultation Report [address] [address] NAME: TOM GUERRIER : 78 STATUS : ADM IN PAT#: [id number] AGE: 36 ADM/REG DATE : 07/29/16 MR#: [id number] REPORT SERV DATE: 07/30/16 DICTATED BY: MELLISSA ALVARES DATE: 07/30/16 REPORT STATUS : Draft TRANSCRIBED BY: DUNG DATE: 07/30/16 She does not smoke, does not drink alcohol, or use illicits. She has a former history of marijuana use. FAMILY HISTORY: The patient's mother is 60, she suffers from hypertension. The patient's father is 68, he also suffers from hypertension. She has two sisters who are relatively healthy. REVIEW OF SYSTEMS: For pertinent positives, please refer to HPI. PHYSICAL EXAMINATION: GENERAL: The patient is a 36-year-old female who stands 5 feet 1 inch tall and weighs 161 pounds. She is afebrile. Heart rate 103, respiratory rate 18, O2 saturation on room air are 96%, and blood pressure 109/66. NEUROLOGIC: The patient is somewhat drowsy (just received pain medication). She will arouse to verbal stimuli. She is oriented x4. No dysarthria. No aphasia. Cranial nerves 2 through 12 are intact. Pupils are 3 mm. PERRLA. She does have a fine action tremor bilaterally. No tremor noted in the jaw or chin region. Fxewlm-xl-psev: No ataxia. No dysmetria or asterixis. Upper extremity strength is 5/5. Upper DTRs 1+ bilaterally. No reported sensory deficits. Lower extremity strength is 5/5. Patellar reflexes 2+ bilaterally. Downgoing toes. No reported sensory deficits. The patient was not ambulated since she just received pain medication. NECK: No carotid bruits. Slight swelling in the left side of her neck. LUNGS: Sounds clear. CARDIAC: Regular rate and rhythm. LABORATORY DATA: CBC is normal. BMP normal. CTA of the neck shows hyperdensity with inflammatory changes in the left IJ region. There is a subacute thrombus in the left internal jugular vein. Chest x-ray, no acute changes. ASSESSMENT AND PLAN: 1. Tremor, most likely secondary to Depakote therapy. At this point, the patient will have a Depakote level checked along with ammonia and liver panel. The patient will continue on her Depakote and Lamictal therapy and adjustments will be made according to the lab values if necessary. 2. History of seizure, most likely secondary to benzodiazepine withdrawal. The patient will continue on her nightly Klonopin as ordered. 3. Bipolar disorder. The patient will continue on Depakote and Lamictal and we will follow up with Dr. Almendarez on an outpatient basis. Thank you again for including us in consultation. Consultation Report [address] [address] NAME: TOM GUERRIER : 78 STATUS : ADM IN [facility]#: [id number] AGE: 36 ADM/REG DATE : 07/29/16 MR#: [id number] REPORT SERV DATE: 07/30/16 DICTATED BY: MELLISSA ALVARES DATE: 07/30/16 REPORT STATUS : Draft TRANSCRIBED BY: DUNG DATE: 07/30/16 BRENT/DUNG ALLAN Hernandez- / [id number] CC: Wood Drummond MD NO PCP
--- NOTE | ~2016-07-29 | HP ---
History And Physical [id number] [place]. [address] NAME: TOM RIVAS : 78 STATUS : ADM IN [facility]#: [id number] AGE: 36 ADM/REG DATE : 07/29/16 MR#: [id number] REPORT SERV DATE: 07/30/16 DICTATED BY: DATE: REPORT STATUS : Draft TRANSCRIBED BY: MODL DATE: 07/30/16 DATE OF ADMISSION: 07/29/2016 CHIEF COMPLAINT: Left neck swelling. HISTORY OF PRESENT ILLNESS: Ms. Rivas is a 36-year-old white female with a history of bipolar disorder who had a prolonged hospitalization over 30 days. She developed acute kidney injury following status epilepticus due to rhabdomyolysis. She was still HD dependent on discharge for her acute renal failure and we have been following her at the clinic. Her urine output has dramatically increased. Creatinine without treatment yesterday was 1.72. She was sent to the emergency department because of her left neck swelling. She was felt to have a right IJ thrombosis related to catheter. Given this, we admitted her for anticoagulation. PAST MEDICAL HISTORY: Encephalopathy, status epilepticus, seizure, ADD, hypertension, bipolar disorder, acute kidney injury, asthma, depression, anxiety, anemia, and respiratory failure last admission. SOCIAL HISTORY: She was a student. No tobacco or alcohol use. ALLERGIES: NONE. MEDICATIONS: At time of admission, amlodipine, Depakote, Lexapro, labetalol, Lamictal, loratadine, melatonin, and clonazepam. Clonazepam. REVIEW OF SYSTEMS: A 12-point review of systems was obtained, negative with the exception of that in HPI. PHYSICAL EXAMINATION: VITAL SIGNS: Temperature 98.3, blood pressure 124/62, pulse 101, respiratory rate 16, O2 saturation is 98%. GENERAL: This is a pleasant, cooperative, white female. She is awake, alert, and oriented x3. No acute distress. Answers questions appropriately. HEENT: Normocephalic and atraumatic. Conjunctivae are clear. Sclerae are anicteric. Pupils are equal and round. Oral mucosa is moist. NECK: To the left side of her neck, she has significant swelling down the neck to the catheter. No lymphadenopathy Lungs: Respirations are even and unlabored. Breath sounds are clear to auscultation. HEART: Rate is regular. No murmur, rub, or gallop. ABDOMEN: Soft and nontender. Bowel sounds active. No masses. No hepatosplenomegaly. No bruits. No CVA tenderness. BACK: Within normal limits. EXTREMITIES: No edema, cyanosis, or clubbing. SKIN: Warm, dry, and intact. No unusual rashes or skin lesions. NEUROLOGIC: No focal deficits. Mood and affect are pleasant and appropriate. History And Physical [address] [place]. [address] NAME: TOM RIVAS : 78 STATUS : ADM IN PAT#: [id number] AGE: 36 ADM/REG DATE : 07/29/16 MR#: [id number] REPORT SERV DATE: 07/30/16 DICTATED BY: DATE: REPORT STATUS : Draft TRANSCRIBED BY: DUNG DATE: 07/30/16 PERTINENT LABS AND X-RAYS: Sodium 139, potassium 4, chloride 99, CO2 of 29, BUN of 21, creatinine 1.7, calcium 8.7, albumin of 2.9. LFTs are unremarkable. CT of the neck with left IJ thrombosis. WBC is 10, hemoglobin and hematocrit are 8 and 25, platelets 162,000. Chest x-ray negative. IMPRESSION: 1. Right IJ thrombosis. 2. Acute kidney injury secondary to rhabdomyolysis with status epilepticus. 3. Bipolar disorder with anxiety. 4. Tremors with questions regarding her seizure medications. PLAN: She has been admitted on a heparin drip. We will get Vascular Surgery to see her and hopefully we can pull this catheter and I am going to recheck labs today. If her labs are consistent with yesterday, we will need to have catheter pulled, thus she will no longer need dialysis. We are going to get Neuro to see her. She has no outpatient followup and was prescribed multiple seizure medications and they have questions regarding tremors after taking medication. We will need to get anticoagulation set up as an outpatient, whether it would be Coumadin versus Eliquis. Further orders and recommendations pending clinical course. JOSEP LETITIA Ramsey / [id number] CC: Wood Drummond MD
--- NOTE | ~2016-07-29 | DS ---
Discharge Summary [facility] [address] [place]. [address] NAME: TOM GUERRIER : 78 STATUS : DIS IN PAT#: [id number] AGE: 36 ADM/REG DATE : 07/29/16 MR#: [id number] REPORT SERV DATE: 09/04/16 DICTATED BY: CARRIE TATE DATE: 08/12/16 REPORT STATUS : Draft TRANSCRIBED BY: DUNG DATE: 08/12/16 Data Collection from hospitalization DISCHARGE DIAGNOSES: 1. Right IJ thrombosis. 2. Acute kidney injury. 3. Rhabdomyolysis. 4. Seizure. 5. Hypertension. 6. Encephalopathy. 7. Attention-deficit disorder. 8. Bipolar disorder. 9. Asthma. 10.Depression and anxiety. 11.Anemia. 12.History of respiratory failure. CONSULTATIONS: 1. Kary Ch [facility]-. 2. Maryann Marie NP. PROCEDURES: 1. CT scan of the neck without contrast, 07/29/2016. 2. Venous Doppler ultrasound of the left upper extremity, 08/02/2016. DISCHARGE MEDICATIONS: Tylenol 1000 mg daily as needed, Norvasc 10 mg every morning, Eliquis 5 mg twice a day, Klonopin 1 mg at bedtime, Depakote 1000 mg twice a day, Lexapro 10 mg daily, Trandate 300 mg twice a day, Lamictal 25 mg twice a day, Claritin 10 mg every morning, melatonin 3 mg at bedtime, Eliquis 10 mg twice a day for seven days then 5 mg as instructed. CONDITION ON DISCHARGE: Stable. DISPOSITION: The patient was discharged home on low cholesterol, low saturated fat diet with activities as instructed. [facility] as instructed. HOSPITAL COURSE: This is a 36-year-old female who has a history of bipolar disorder and had a prolonged hospitalization every 30 days. She developed acute kidney injury following status epilepticus due to rhabdomyolysis. She was still hemodialysis dependent on discharge for her acute renal failure and we had been following her in the clinic. Her urine output had dramatically increased. Creatinine without treatment on the day prior to this admission was 1.72. She was sent to the emergency department because of left neck swelling. She was felt to have right IJ thrombosis related to the catheter. She was admitted to the hospital at this time for further evaluation and treatment. Upon admission, she was started on a heparin drip. We were hopeful that this catheter could be removed and she would have labs rechecked. If her labs were consistent with the day prior to admission, she would need to have the catheter pulled. Thus, she would no longer Discharge Summary [facility] [address] [place] [address] NAME: TOM GUERRIER : 78 STATUS : DIS IN PAT#: [id number] AGE: 36 ADM/REG DATE : 07/29/16 MR#: [id number] REPORT SERV DATE: 09/04/16 DICTATED BY: CARRIE TATE DATE: 08/12/16 REPORT STATUS : Draft TRANSCRIBED BY: DUNG DATE: 08/12/16 need dialysis. Anticoagulation would be set up as an outpatient. The patient was seen by Maryann Marie NP. She had been asked to evaluate the patient regarding acute left IJ venous thrombosis status post placement of left IJ Vas Cath. The Vas Cath was last used for dialysis on Friday prior to this admission with no problems. The patient had noticed left neck swelling which started on the day prior to this admission with pain. She also had edema in the left side of her face and neck and upper chest. It was felt that she had acute left IJV thrombus secondary to central venous catheter placement. Outpatient treatment with Eliquis was recommended for six months. She also recommended central venous duplex in three to four days to ensure improvement in resolution of the DVT. The head of her bed would be kept elevated at 30 degrees. She was seen by JOVAN Hernandez. She was then placed on a heparin drip. The CT scan of the neck without contrast was performed. The patient has a complaint of a tremor. According to the patient and her mother, the patient had a fine tremor in her hands, jaws, and chins for about 30-45 minutes after taking her dosage of Depakote and Lamictal. This had been going on consistently over the past week to week and a half. She denied having tremor prior to being placed on this medication. When questioned more extensively about her seizure activity on 06/18/2016, the patient and mother had mentioned that the patient abruptly stopped taking her Klonopin and consequently was told that her seizure activity was due to abrupt withdrawal. It was felt that the tremor was most likely secondary to Depakote therapy. Depakote level was going to be checked along with ammonia and liver panel. The patient will be continued on her Depakote and Lamictal therapy and adjustments will be made according to the lab values if necessary. The patient has a history of seizure, most likely secondary to benzodiazepine withdrawal. Her nightly Klonopin was going to be continued. For her bipolar disorder, we would continue on Depakote and Lamictal. She was to follow up with Dr. Almendarez on an outpatient basis. On the , neck swelling had improved. Her T-max was 99.5. Depakote and Lamictal were continued. Over the next couple of days, discharge planning was performed. Her neck pain had improved. She had no new complaints. Repeat ultrasound was going to be performed. Discharge planning was performed. On 08/02/2016, a venous Doppler ultrasound of the left upper extremity was performed. There was occlusive left internal jugular vein thrombosis. Discharge instructions were given. Due to her improved and stable condition, she was discharged home with the above-stated instructions. Information collected by: Iris Avila I submit the above information as my discharge summary. TG/MODL Carrie Tate MD / [id number] CC: Paul Richardson NP
[~2016-07-29 19:01] MED LIST changes: +DEPAKOT500 PO; +KLONO2 PO; +LAMICTAL25 PO; +LEXAPRO10 PO; +MELA3 PO; +NORV10 PO; +OCEAN NAS; +TRANDAT300 PO
[2016-07-29 19:09] LABS: BASOPHILS 0.3 %; BASOPHILS ABSOLUTE 0.03 10/3/uL (0.0-0.16); EOSINOPHILS 1.9 %; EOSINOPHILS ABSOLUTE 0.19 10/3/uL (0.0-0.53); HEMATOCRIT 25.7 % (36.0-48.0); HEMOGLOBIN 8.8 g/dL (12.0-16.0); IMMATURE GRANULOCYTES 0.9 %; IMMATURE GRANULOCYTES ABSOLUTE 0.09 10/3/uL (0.0-0.11); LYMPHOCYTES 16.8 %; LYMPHOCYTES ABSOLUTE 1.72 10/3/uL (0.67-4.30); MEAN CORPUS HGB CONC 34.2 g/dL (32.0-36.0); MEAN CORPUSCULAR HEMOGLOB 31.4 pg (26.0-34.0); MEAN CORPUSCULAR VOLUME 91.8 fL (80-100); MEAN PLATELET VOLUME 8.6 fL (9.2-13.0); MONOCYTES 15.7 %; MONOCYTES ABSOLUTE 1.61 10/3/uL (0.21-1.20); NEUTROPHILS 64.4 %; NEUTROPHILS ABSOLUTE 6.61 10/3/uL (2.02-8.40); RBC DISTRIBUTION WIDTH 15.1 % (12.0-16.0)
[2016-07-29 19:12] LABS: PLATELET COUNT 162 10/3/uL (150-400); WHITE BLOOD CELLS 10.3 10/3/uL (4.5-10.5)
[2016-07-29 19:13] LABS: MANUAL DIFF NO %
[2016-07-29 19:18] LABS: INTERNATIONAL NORMAL RATI 1.2 UNITS (-); PROTIME (NOT ORD) 14.6 SEC (12.0-14.5)
[2016-07-29 19:19] LABS: PARTIAL THROMBO TIME 37.1 SEC (22.5-37.2)
[2016-07-29 19:25] LABS: BUN (BLOOD UREA NITROGEN) 21 MG/DL (6-23); CALCIUM, SERUM 8.7 MG/DL (8.5-10.4); CHLORIDE, SERUM 99 MMOL/L (96-112); CO2 (CARBON DIOXIDE) 29 MMOL/L (24-34); GLUCOSE, SERUM 94 MG/DL (60-99); SGOT(AST) 8 U/L (5-40); SGPT(ALT) 14 U/L (5-65); SODIUM, SERUM 139 MMOL/L (135-148); TOTAL BILIRUBIN 0.3 MG/DL (0-1.2); TOTAL PROTEIN 6.8 G/DL (6.0-8.5)
[2016-07-29 19:26] LABS: A/G RATIO 0.7 (0.7-1.9); ALBUMIN 2.9 G/DL (3.5-5.0); ALKALINE PHOSPHATASE 46 U/L (45-117); CREATININE 1.72 MG/DL (0.55-1.02); GFR AFRICAN AMERICAN 43 ML/MIN (>=60); GFR NON AFRICAN AMERICAN 37 ML/MIN (>=60); GLOBULIN 3.9 G/DL (2.5-4.1)
[2016-07-29] MEDS ORDERED: KLONO1 PO (21:24)
[2016-07-29] MEDS ORDERED: NORV10 PO (21:30)
[2016-07-29] MEDS ORDERED: LEXAPRO10 PO (21:30)
[2016-07-29] MEDS ORDERED: TRANDAT300 PO (21:31)
[2016-07-29] MEDS ORDERED: LAMICTAL25 PO (21:32)
[2016-07-29] MEDS ORDERED: DEPAKOT500 PO (21:32)
[2016-07-29] MEDS ORDERED: MELA3 PO (21:33)
[2016-07-29] MEDS ORDERED: ACET500CAP PO (21:34)
[2016-07-29] MEDS ORDERED: CLARIT10 PO (21:34)
[2016-07-30 16:16] LABS: BASOPHILS 0.5 %; BASOPHILS ABSOLUTE 0.03 10/3/uL (0.0-0.16); EOSINOPHILS 3.4 %; EOSINOPHILS ABSOLUTE 0.22 10/3/uL (0.0-0.53); HEMATOCRIT 25.3 % (36.0-48.0); HEMOGLOBIN 8.4 g/dL (12.0-16.0); IMMATURE GRANULOCYTES 1.1 %; IMMATURE GRANULOCYTES ABSOLUTE 0.07 10/3/uL (0.0-0.11); LYMPHOCYTES 28.8 %; LYMPHOCYTES ABSOLUTE 1.84 10/3/uL (0.67-4.30); MEAN CORPUS HGB CONC 33.2 g/dL (32.0-36.0); MEAN CORPUSCULAR HEMOGLOB 31.1 pg (26.0-34.0); MEAN CORPUSCULAR VOLUME 93.7 fL (80-100); MEAN PLATELET VOLUME 9.1 fL (9.2-13.0); MONOCYTES 12.4 %; MONOCYTES ABSOLUTE 0.79 10/3/uL (0.21-1.20); NEUTROPHILS 53.8 %; NEUTROPHILS ABSOLUTE 3.43 10/3/uL (2.02-8.40); PLATELET COUNT 202 10/3/uL (150-400); RBC DISTRIBUTION WIDTH 14.8 % (12.0-16.0); WHITE BLOOD CELLS 6.4 10/3/uL (4.5-10.5)
[2016-07-30 16:17] LABS: MANUAL DIFF NO %
[2016-07-30 16:34] LABS: ALBUMIN 2.5 G/DL (3.5-5.0); BUN (BLOOD UREA NITROGEN) 19 MG/DL (6-23); CALCIUM, SERUM 8.5 MG/DL (8.5-10.4); CHLORIDE, SERUM 103 MMOL/L (96-112); CO2 (CARBON DIOXIDE) 27 MMOL/L (24-34); GFR AFRICAN AMERICAN 47 ML/MIN (>=60); GFR NON AFRICAN AMERICAN 41 ML/MIN (>=60); GLUCOSE, SERUM 88 MG/DL (60-99); PHOSPHORUS, SERUM 3.8 MG/DL (2.5-4.5); POTASSIUM, SERUM 4.2 MMOL/L (3.5-5.3); SODIUM, SERUM 138 MMOL/L (135-148)
[2016-07-31 07:47] LABS: ALBUMIN 2.5 G/DL (3.5-5.0); ALKALINE PHOSPHATASE 39 U/L (45-117); CHOL/HDL RATIO(NOT ORDER) 4.5 (0-5); CHOLESTEROL 167 MG/DL (< 200); DEPAKENE (VALPROIC ACID) 95.9 MCG/ML (50.0-100.0); HDL CHOLESTEROL 37 MG/DL (> 49); LDL CHOLESTEROL 104 MG/DL (< 130); NON-HDL CHOLESTEROL 130 MG/DL (< 160); SGOT(AST) 9 U/L (5-40); SGPT(ALT) 9 U/L (5-65); TOTAL BILIRUBIN 0.7 MG/DL (0-1.2); TOTAL PROTEIN 6.5 G/DL (6.0-8.5); TRIGLYCERIDE 130 MG/DL (< 150)
[2016-07-31 07:48] LABS: DIRECT BILIRUBIN < 0.1 MG/DL (0.0-0.4); FOLATE 12.7 NG/ML (>5.2); INDIRECT BILIRUBIN(NOT ORDER) 0.6 MG/DL (0.1-0.9)
[2016-07-31 10:00] LABS: GLYCOHEMOGLOBIN (HbA1c) 4.7 % (4.7-6.1)
[2016-08-01 01:49] LABS: ALBUMIN 2.3 G/DL (3.5-5.0); BUN (BLOOD UREA NITROGEN) 19 MG/DL (6-23); CALCIUM, SERUM 8.2 MG/DL (8.5-10.4); CHLORIDE, SERUM 102 MMOL/L (96-112); CO2 (CARBON DIOXIDE) 30 MMOL/L (24-34); CREATININE 1.62 MG/DL (0.55-1.02); GFR AFRICAN AMERICAN 47 ML/MIN (>=60); GFR NON AFRICAN AMERICAN 40 ML/MIN (>=60); GLUCOSE, SERUM 108 MG/DL (60-99); POTASSIUM, SERUM 4.2 MMOL/L (3.5-5.3); SODIUM, SERUM 143 MMOL/L (135-148)
[2016-08-01 01:50] LABS: PHOSPHORUS, SERUM 4.8 MG/DL (2.5-4.5)
[2016-08-02 10:27] LABS: ALBUMIN 2.6 G/DL (3.5-5.0); BUN (BLOOD UREA NITROGEN) 16 MG/DL (6-23); CALCIUM, SERUM 8.9 MG/DL (8.5-10.4); CHLORIDE, SERUM 105 MMOL/L (96-112); CO2 (CARBON DIOXIDE) 29 MMOL/L (24-34); CREATININE 1.38 MG/DL (0.55-1.02); GFR AFRICAN AMERICAN 56 ML/MIN (>=60); GFR NON AFRICAN AMERICAN 49 ML/MIN (>=60); GLUCOSE, SERUM 91 MG/DL (60-99); PHOSPHORUS, SERUM 4.4 MG/DL (2.5-4.5); POTASSIUM, SERUM 4.2 MMOL/L (3.5-5.3); SODIUM, SERUM 143 MMOL/L (135-148)
[2016-08-02] MEDS ORDERED: ELIQUIS 5 MG TAB5 MG PO (14:06)
[2016-08-02] MEDS ORDERED: ELIQUIS PO (14:06)
== END 2016-08-02 19:03 | disposition home or self-care (01) | DRG 314 ==
LOC: ER 19:01 → 2SO 20:50
PROVIDERS: Emergency Medicine; Internal Medicine Nephrology; Nurse Practitioner
PROC: 0JPV3XZ Removal of Tunneled Vascular Access Device from Upper Extremity Subcutaneous Tissue and Fascia, Percutaneous Approach (ICD-10-PCS; principal; 2016-08-01)
DX: T82.868A Thrombosis due to vascular prosthetic devices, implants and grafts, initial encounter (principal); N18.6 End stage renal disease; I82.C11 Acute embolism and thrombosis of right internal jugular vein; N17.9 Acute kidney failure, unspecified; M62.82 Rhabdomyolysis; I12.0 Hypertensive chronic kidney disease with stage 5 chronic kidney disease or end stage renal disease; Y82.8 Other medical devices associated with adverse incidents; G40.901 Epilepsy, unspecified, not intractable, with status epilepticus; F31.9 Bipolar disorder, unspecified; Z99.2 Dependence on renal dialysis; F98.8 Other specified behavioral and emotional disorders with onset usually occurring in childhood and adolescence; F41.9 Anxiety disorder, unspecified; D64.9 Anemia, unspecified; G25.1 Drug-induced tremor; T42.6X5A Adverse effect of other antiepileptic and sedative-hypnotic drugs, initial encounter
CPT/HCPCS: 36589; 36598; 70490; 71020; 76000; 77001; 80053; 80061; 80069; 80076; 80164; 82140; 82306; 82533; 82607; 82746; 83036; 85025; 85610; 85730; 93971; 96374; 96375; 99285; A9270-GY; J1170; J2250; J2405